=== PATIENT | female | born 1975 | race Two or more races ===

== ENCOUNTER 2022-12-08 07:11 | Emergency (ER) | payer OTHER, SELFPAY ==
--- NOTE | ~2022-12-08 | CT_ITS ---
EXAMINATION: CT ABDOMEN AND PELVIS WITH CONTRAST CLINICAL INFORMATION: Right-sided pain COMPARISON: Previous limited abdominal ultrasound from earlier the same day and CT of the abdomen and pelvis May 2019 TECHNIQUE: Multidetector volumetric images were obtained from the superior aspect of the liver through the pubic symphysis following administration 85 mL of Omnipaque 350 intravenous contrast. Sagittal and coronal reformatted images were obtained on the technologist's workstation. Oral contrast: Yes This CT examination was performed using dose optimization techniques as appropriate, variously including the following: *Automated exposure control *Adjustment of mA and/or kV according to patient size (this includes techniques or standardized protocols for targeted exams where dose is matched to indication/reason for exam; i.e. extremities or head) *Use of iterative reconstruction technique DLP: 679 mGy-cm FINDINGS: LUNG BASES: The visualized lung bases are unremarkable. LIVER, GALLBLADDER, AND BILIARY TREE: The liver is normal in size, shape, and attenuation. No focal hepatic lesion or biliary ductal dilatation is present. The gallbladder is unremarkable with no evidence of radiopaque gallstones, gallbladder wall thickening, or obvious pericholecystic inflammatory changes. PANCREAS: Unremarkable. SPLEEN: Unremarkable. ADRENAL GLANDS: Unremarkable. KIDNEYS AND URETERS: The kidneys are normal in size, shape, and attenuation. No hydronephrosis, hydroureter, or calculi seen. No perinephric stranding. BLADDER: Unremarkable. GASTROINTESTINAL TRACT: The small and large bowel are unremarkable. The appendix is unremarkable. ABDOMINAL WALL: Small umbilical and right inguinal hernia containing fat. LYMPH NODES: Normal. VASCULAR: Unremarkable. PELVIC VISCERA: The uterus has been removed. No pelvic mass. OSSEOUS STRUCTURES: Unremarkable. CT/CT abdomen pelvis w IV con IMPRESSION: No acute finding. Small umbilical and right inguinal hernias containing fat. Fleischner guidelines were followed.
--- NOTE | ~2022-12-08 | US_ITS ---
EXAMINATION: US ABDOMEN LIMITED CLINICAL INFORMATION: Right upper quadrant pain. COMPARISON: CT scan of May 14, 2019 TECHNIQUE: Real-time imaging of the right upper quadrant abdominal viscera. FINDINGS: PANCREAS: Obscured by overlying bowel gas. LIVER: There is increased echogenicity consistent with fatty infiltration. The liver is normal in size. The liver contour is normal. No focal hepatic lesion. There is no intrahepatic biliary duct dilatation seen. GALLBLADDER: Normal. The gallbladder is physiologically distended without evidence of stones, sludge, polyps, wall thickening or pericholecystic fluid. COMMON BILE DUCT: Normal in caliber measuring 0.3 cm in diameter. RIGHT KIDNEY: Normal. No hydronephrosis. No renal calculi or focal parenchymal lesions. The kidney measures 10.7 cm in maximum dimension. FREE FLUID: None. US/US abdomen limited IMPRESSION: Fatty infiltration of the liver. No evidence of acute cholecystitis.
[2022-12-08 07:14] VITALS: BP 125/75; PULSE 95; RESP 18; TEMP 36.6; O2SAT 99; BMI 33.5
[2022-12-08 07:36] VITALS: BP 124/80; PULSE 92; RESP 18; TEMP 36.6; O2SAT 97
--- NOTE | 2022-12-08 07:36 | ED_ITS ---
HPI - General Adult General Chief complaint: General Medical Stated complaint: R flank pain/Vomiting/Fever Time Seen by Provider: 12/08/22 07:24 Source: patient and old records reviewed History of Present Illness HPI narrative: Patient with 4 days of abdominal pain and vomiting. Patient states for the past few days she has also had intermittent fevers up to 102 degrees F. Pain is mostly right mid upper abdomen radiating to right flank. No lower abdominal or pelvic area pain. She denies dysuria, hesitancy, frequency, hematuria. No history of kidney stones or gallstones of which she is aware. Prior abdominal surgical history is significant for hysterectomy, tubal ligation, and ablation. No diarrhea. Last normal bowel movement yesterday. Minimal appetite. Unable to state if pain is better or worse with p.o. intake as she states she has not eaten in the last several days. Related Data Previous Rx's Medication Instructions Recorded promethazine 25 mg tablet 25 mg PO Q6H PRN nausea and 12/08/22 vomiting #20 tabs Allergies Allergy/AdvReac Type Severity Reaction Status Date / Time salazar [SALAZAR] Allergy Unknown UNK Verified 12/08/22 08:00 kiwi [KIWI] Allergy Unknown ANAPHYLAXIS Verified 12/08/22 08:00 shellfish derived Allergy Unknown ANAPHYLAXIS Verified 12/08/22 08:00 [SHELLFISH DERIVED] hydromorphone [HYDROMORPHONE] AdvReac Mild NAUSEA & Verified 12/08/22 08:00 VOMITING salazar Allergy Unknown Anaphylaxis Uncoded 12/08/22 08:00 kiwi Allergy Unknown Anaphylaxis Uncoded 12/08/22 08:00 possibly IV contrast Allergy Unknown 1 x Uncoded 09/14/17 00:00 swelling, itch SEAFOOD Allergy Unknown UNK Uncoded 03/27/20 19:00 seafood Allergy Unknown Anaphylaxis Uncoded 12/08/22 08:00 Review of Systems Constitutional: Comments: Fevers and general malaise Respiratory: Comments: No cough Gastrointestinal: Gastrointestinal: Reports as per HPI Genitourinary: Genitourinary: Reports no additional female genitourinary complaints Musculoskeletal: Comments: Pain to right flank Integumentary/Breasts: Comments: No rash PMFSH Social History Social History Advance Directives: No Advance Directives Information Provided: No Physical Exam ED Vital Signs: Vital Signs - 24 hr 12/08/22 07:14 12/08/22 07:36 12/08/22 09:12 Temperature 98 F 98 F 98 F Pulse Rate 95 92 79 Respiratory Rate 18 18 18 Blood Pressure 125/75 124/80 106/60 Pulse Oximetry 99 97 98 Oxygen Delivery Method Room Air Room Air Room Air 12/08/22 10:21 12/08/22 12:29 Temperature 98.7 F 98.7 F Pulse Rate 89 89 Respiratory Rate 18 18 Blood Pressure 128/64 122/80 Pulse Oximetry 100 98 Oxygen Delivery Method Room Air Room Air BMI result Body Mass Index 33.5 Const Other: Awake and alert. Appears uncomfortable. HENMT Other: Mucosa dry. Mucosa pale. Resp Other: Clear and equal bilaterally without wheezes rales or rhonchi Cardio Other: Regular rate and rhythm without murmurs rubs or gallops GI Other: Soft. Tender right upper quadrant with positive Reardon sign. Right flank tenderness to percussion as well. No significant lower abdominal tenderness. Skin Other: Pale and dry without rash Neuro Other: Grossly nonfocal neuro exam Medications Administered Discontinued Medications Generic Name Dose Route Start Last Admin Trade Name Freq PRN Reason Stop Dose Admin Diphenhydramine HCl 50 mg 12/08/22 09:53 12/08/22 10:08 Diphenhydramine Hcl 50 Mg/Ml Vial IVPUSH 12/08/22 09:54 50 mg ONCE ONE Administration Fentanyl 50 mcg 12/08/22 09:19 12/08/22 09:23 Fentanyl Citrate/Pf 100 Mcg/2 Ml Vial IVPUSH 12/08/22 09:20 50 mcg ONCE ONE Administration Protocol Fentanyl 50 mcg 12/08/22 12:47 12/08/22 12:53 Fentanyl Citrate/Pf 100 Mcg/2 Ml Vial IVPUSH 12/08/22 12:48 50 mcg ONCE ONE Administration Protocol Sodium Chloride 1,000 mls @ 999 mls/hr 12/08/22 07:45 12/08/22 12:44 Ns IV 12/08/22 08:45 Infused .Q1H1M SALOMÓN Infusion Iohexol 100 ml 12/08/22 09:51 12/08/22 09:51 Iohexol 350 Mg/Ml 100 Ml Infus..Btl IV 12/08/22 09:52 85 ml ONCE ONE Administration Ketorolac Tromethamine 30 mg 12/08/22 07:35 12/08/22 07:54 Ketorolac Tromethamine 15 Mg/Ml Vial IVPUSH 12/08/22 07:36 30 mg ONCE ONE Administration Methylprednisolone Sodium Succinate 125 mg 12/08/22 09:53 12/08/22 10:08 Methylprednisolone Sod Succ 125 Mg/2 Ml Vial IVPUSH 12/08/22 09:54 125 mg ONCE ONE Administration Ondansetron HCl 4 mg 12/08/22 07:35 12/08/22 07:54 Ondansetron Hcl 4 Mg/2 Ml Vial IVPUSH 12/08/22 07:36 4 mg ONCE ONE Administration Medical Decision Making Medical Decision Making MDM Narrative: Patient with 4 days of right upper quadrant radiating to flank pain with fevers. Cholecystitis, pyelonephritis, kidney stone, viral or bacterial enteritis, pancreatitis. Clinically appears dehydrated as well. Will treat with IV fluids, IV Toradol, IV Zofran. Lab work including LFTs and lipase. Ultrasound for gallbladder imaging. If nondiagnostic will order CT scan 09:56. After CT scan patient states she is feeling somewhat itchy.. She states this has happened in the past with CT scan dye. Although she does not have it listed as a formal allergy. She states that given her medicine after an IV contrast in the past. Will order diphenhydramine and Solu-Medrol 13:47. CT scan shows no obvious abnormalities to explain the pain. Lab work shows normal CBC and normal chemistries. LFTs are normal as is lipase. Urinalysis is normal. Patient is feeling better after treatment. Lab Data 12/08/22 07:35 12/08/22 07:35 Labs: Lab Results 12/08/22 12/08/22 12/08/22 Range/Units 07:35 07:35 07:35 WBC 9.6 (4.8-10.8) X10*3/uL RBC 4.48 (4.20-5.50) X10*6/uL Hgb 12.5 (12.0-16.0) g/dl Hct 38.5 (37.0-47.0) % MCV 85.9 (80.0-98.0) fL MCH 27.9 (27.0-33.0) pg MCHC 32.5 (31.0-35.0) g/dl RDW 13.7 (11.0-16.0) % Plt Count 355 (160-400) X10*3/uL MPV 8.8 L (9.4-12.3) fL Absolute Nucleated RBC 0.000 (0.0-0.012) X10*3/uL Nucleated RBC % (auto) 0.0 (0.0-0.2) /100WBC Sodium 140 (135-145) mmol/L Potassium 4.8 (3.3-5.1) mmol/L Chloride 110 H (96-108) mmol/L Carbon Dioxide 25 (22-29) mmol/L Anion Gap 10 L (12-20) BUN 16 (9-16) mg/dL Creatinine 0.83 (0.5-1.4) mg/dL Estim Creat Clear Calc 91.1 Estimated GFR > 60 POC Glucose (60-115) mg/dL Random Glucose 170 H (60-115) mg/dL Calcium 9.2 (8.4-10.2) mg/dL Total Bilirubin 0.2 (0.0-1.0) mg/dL Direct Bilirubin < 0.2 (0.0-0.5) mg/dL AST 10 (5-31) U/L ALT 16 (0-31) U/L Alkaline Phosphatase 82 (39-117) U/L Total Protein 7.0 (6.5-8.0) g/dL Albumin 3.8 (3.5-5.0) g/dL Lipase 23 (8-78) U/L Urine Color Yellow Urine Appearance Clear Urine pH 7.0 (5.0-9.0) Ur Specific [place] >= 1.030 H (1.005-1.025) Urine Protein Negative (Neg-Trace) mg/dL Urine Glucose (UA) >=1000 H (Negative) mg/dL Urine Ketones Negative (Negative) mg/dL Urine Blood Negative (Negative) Urine Nitrite Negative (Negative) Ur Leukocyte Esterase Negative (Negative) Urine RBC 0-2 (0-2) /HPF Urine WBC 0-5 (0-5) /HPF Ur Squamous Epith Cells 0-2 (0-2) /HPF Urine Bacteria None Seen (None Seen) Hyaline Casts 0-2 (0-2) /LPF Urine Test (NEGATIVE) 12/08/22 12/08/22 Range/Units 07:35 10:25 WBC (4.8-10.8) X10*3/uL RBC (4.20-5.50) X10*6/uL Hgb (12.0-16.0) g/dl Hct (37.0-47.0) % MCV (80.0-98.0) fL MCH (27.0-33.0) pg MCHC (31.0-35.0) g/dl RDW (11.0-16.0) % Plt Count (160-400) X10*3/uL MPV (9.4-12.3) fL Absolute Nucleated RBC (0.0-0.012) X10*3/uL Nucleated RBC % (auto) (0.0-0.2) /100WBC Sodium (135-145) mmol/L Potassium (3.3-5.1) mmol/L Chloride (96-108) mmol/L Carbon Dioxide (22-29) mmol/L Anion Gap (12-20) BUN (9-16) mg/dL Creatinine (0.5-1.4) mg/dL Estim Creat Clear Calc Estimated GFR POC Glucose 99 (60-115) mg/dL Random Glucose (60-115) mg/dL Calcium (8.4-10.2) mg/dL Total Bilirubin (0.0-1.0) mg/dL Direct Bilirubin (0.0-0.5) mg/dL AST (5-31) U/L ALT (0-31) U/L Alkaline Phosphatase (39-117) U/L Total Protein (6.5-8.0) g/dL Albumin (3.5-5.0) g/dL Lipase (8-78) U/L Urine Color Urine Appearance Urine pH (5.0-9.0) Ur Specific [place] (1.005-1.025) Urine Protein (Neg-Trace) mg/dL Urine Glucose (UA) (Negative) mg/dL Urine Ketones (Negative) mg/dL Urine Blood (Negative) Urine Nitrite (Negative) Ur Leukocyte Esterase (Negative) Urine RBC (0-2) /HPF Urine WBC (0-5) /HPF Ur Squamous Epith Cells (0-2) /HPF Urine Bacteria (None Seen) Hyaline Casts (0-2) /LPF Urine Test NEGATIVE (NEGATIVE) Discharge Plan Discharge Clinical Impression: Nausea and vomiting Patient Disposition: Home, Self-Care Instructions: Acute Nausea and Vomiting (ED), Acute Abdominal Pain (ED) Additional Instructions: Her workup in the emergency department showed normal lab work including liver function and pancreatic enzymes. Urinalysis was normal. CT scan showed no obvious abnormalities. Ultrasound showed no gallstones or evidence of gallbladder infection. Your treated with IV fluids, pain medication, and nausea medicine. Will discharge home on nausea medicine Prescriptions: New promethazine 25 mg tablet 25 mg PO Q6H PRN (Reason: nausea and vomiting) Qty: 20 0RF
[2022-12-08 07:48] LABS: UPreg QC Valid YES; Urine Pregnancy NEGATIVE (NEGATIVE)
[2022-12-08 07:49] LABS: Hematocrit 38.5 % (37.0-47.0); Hemoglobin 12.5 g/dl (12.0-16.0); Mean Corpuscular HGB Conc 32.5 g/dl (31.0-35.0); Mean Corpuscular Hemoglobin 27.9 pg (27.0-33.0); Mean Corpuscular Volume 85.9 fL (80.0-98.0); Mean Platelet Volume 8.8 fL (9.4-12.3); Platelet Count 355 X10*3/uL (160-400); Red Blood Count 4.48 X10*6/uL (4.20-5.50); Red Cell Distribution Width 13.7 % (11.0-16.0); White Blood Count 9.6 X10*3/uL (4.8-10.8)
[2022-12-08] MEDS: 0.9 % Sodium Chloride 1,000 ML 999 ML IV (07:54)
[2022-12-08] MEDS: Ketorolac Tromethamine 15 MG/ML VIAL 30 MG IVPUSH (07:54)
[2022-12-08] MEDS: ondansetron HCL 4 MG/2 ML VIAL IVPUSH (07:54)
[2022-12-08 07:59] LABS: Appearance Urine Clear; Color Urine Yellow; Glucose Urine UA >=1000 mg/dL (Negative); Leukocyte Esterase Urine Negative (Negative); Nitrite Urine Negative (Negative); Specific Gravity - Urine >= 1.030 (1.005-1.025); UMIC TRIGGER UACC YES; Urine Blood Negative (Negative); Urine Ketones Negative (Negative); Urine Protein Negative (Neg-Trace)
[2022-12-08 08:07] LABS: Alanine Aminotransferase 16 U/L (0-31); Albumin Level 3.8 g/dL (3.5-5.0); Alkaline Phosphatase 82 U/L (39-117); Anion Gap 10 (12-20); Aspartate Amino Transferase 10 U/L (5-31); Bacteria Urine None Seen (None Seen); Bilirubin Direct < 0.2 mg/dL (0.0-0.5); Bilirubin Total 0.2 mg/dL (0.0-1.0); Blood Urea Nitrogen 16 mg/dL (9-16); Calcium 9.2 mg/dL (8.4-10.2); Carbon Dioxide 25 mmol/L (22-29); Chloride 110 mmol/L (96-108); Creatinine Clr Calc Pharmacy 91.1; Estimated Glomerular Filt Rate > 60; Glucose Random 170 mg/dL (60-115); Hyaline Casts Urine 0-2 /LPF (0-2); Lipase 23 U/L (8-78); Potassium 4.8 mmol/L (3.3-5.1); RBC Urine 0-2 /HPF (0-2); Sodium 140 mmol/L (135-145); Squamous Epithelial Cell Urine 0-2 /HPF (0-2); WBC Urine 0-5 /HPF (0-5)
[2022-12-08 09:12] VITALS: BP 106/60; PULSE 79; RESP 18; TEMP 36.6; O2SAT 98
[2022-12-08] MEDS: fentaNYL citrate/PF 100 MCG/2 ML VIAL 50 MCG IVPUSH ×2 (09:23→12:53)
[2022-12-08] MEDS: iohexoL 350 MG/ML 100 ML INFUS..BTL IV (09:51)
[2022-12-08] MEDS: diphenhydrAMINE HCL 50 MG/ML VIAL IVPUSH (10:08)
[2022-12-08] MEDS: methylPREDNISolone Sod Succ 125 MG/2 ML VIAL IVPUSH (10:08)
--- NOTE | 2022-12-08 10:16 | PC.NURSE ---
patients pain has been hard to control, provider away
[2022-12-08 10:21] VITALS: BP 128/64; PULSE 89; RESP 18; TEMP 37.1; O2SAT 100
[2022-12-08 10:30] LABS: Glucose, Whole Blood 99 mg/dL (60-115)
[2022-12-08 12:29] VITALS: BP 122/80; PULSE 89; RESP 18; TEMP 37.1; O2SAT 98
[2022-12-08 14:13] VITALS: BP 115/64; PULSE 88; RESP 18; O2SAT 96
== END 2022-12-08 14:14 | disposition home or self-care (01) ==
PROVIDERS: Emergency Provider Emergency Medicine; PCP Nurse Practitioner Family
DX: R11.2 Nausea with vomiting, unspecified (principal); R50.9 Fever, unspecified; R10.9 Unspecified abdominal pain; R10.11 Right upper quadrant pain
CPT/HCPCS: 36415; 74177; 76705; 80048; 80076; 81001; 81003; 81025; 82947; 83690; 85027; 96361; 96374; 96375; 96376; 99284; 99285; J1200; J1885; J2405; J2930; J3010; Q9967

== ENCOUNTER 2022-12-10 22:46 | Emergency (ER) | payer OTHER, SELFPAY ==
--- NOTE | ~2022-12-10 | CT_ITS ---
EXAMINATION: CT ABDOMEN AND PELVIS WITHOUT CONTRAST CLINICAL INFORMATION: Right upper quadrant pain COMPARISON: 12/08/2022 TECHNIQUE: Multidetector volumetric imaging was performed from the superior aspect of the liver through the pubic symphysis. Sagittal and coronal reformatted images were obtained on the technologist's workstation. This CT examination was performed using dose optimization techniques as appropriate, variously including the following: *Automated exposure control *Adjustment of mA and/or kV according to patient size (this includes techniques or standardized protocols for targeted exams where dose is matched to indication/reason for exam; i.e. extremities or head) *Use of iterative reconstruction technique DLP: 709 mGy-cm FINDINGS: LUNG BASES: The visualized lung bases are unremarkable. LIVER, GALLBLADDER, AND BILIARY TREE: The liver is normal in size, shape, and attenuation. No focal hepatic lesion or biliary ductal dilatation is identified on this noncontrast exam. The gallbladder is unremarkable with no evidence of radiopaque gallstones, gallbladder wall thickening, or obvious pericholecystic inflammatory changes. PANCREAS: Unremarkable. SPLEEN: Unremarkable. ADRENAL GLANDS: Unremarkable. KIDNEYS AND URETERS: No hydronephrosis or obstructing calculus identified. Mild symmetric bilateral perinephric stranding. BLADDER: Unremarkable. GASTROINTESTINAL TRACT: No evidence of bowel obstruction or significant wall thickening. The appendix is unremarkable. No free fluid or free air is seen. ABDOMINAL WALL: Small fat-containing right inguinal hernia. LYMPH NODES: Normal. VASCULAR: Mild scattered atherosclerotic calcification along the aorta. PELVIC VISCERA: Patient is status post hysterectomy. OSSEOUS STRUCTURES: Unremarkable. CT/CT abdomen pelvis wo IV con IMPRESSION: No acute findings identified in the abdomen/pelvis.
[2022-12-10 23:32] VITALS: BP 139/79; PULSE 112; RESP 18; TEMP 36.6; O2SAT 99; BMI 33.5
[2022-12-10 23:54] LABS: Appearance Urine Clear; Color Urine Yellow; Glucose Urine UA >=1000 mg/dL (Negative); Leukocyte Esterase Urine Negative (Negative); Nitrite Urine Negative (Negative); Specific Gravity - Urine >= 1.030 (1.005-1.025); UMIC TRIGGER UACC YES; Urine Blood Negative (Negative); Urine Ketones Negative (Negative); Urine Protein Negative (Neg-Trace)
[2022-12-10 23:56] LABS: Bacteria Urine None Seen (None Seen); Hyaline Casts Urine 0-2 /LPF (0-2); RBC Urine 0-2 /HPF (0-2); Squamous Epithelial Cell Urine 0-2 /HPF (0-2); WBC Urine 0-5 /HPF (0-5)
[2022-12-11 00:07] LABS: Basophils Absolute Auto 0.1 X10*3/uL (0.0-0.2); Basophils Percent Auto 0.6 % (0-2); Eosinophils Absolute Auto 0.3 X10*3/uL (0.0-0.4); Eosinophils Percent Auto 1.8 % (0-4); Hematocrit 39.7 % (37.0-47.0); Imm Gran Abs Auto 0.05 X10*3/uL (0.00-0.03); Imm Gran Pct Auto 0.3 % (0.0-0.4); Lymphocytes Percent Auto 44.1 % (20-40); MANUAL DIFF FLAG SCAN; Mean Corpuscular HGB Conc 32.7 g/dl (31.0-35.0); Mean Corpuscular Hemoglobin 27.8 pg (27.0-33.0); Mean Platelet Volume 8.5 fL (9.4-12.3); Monocytes Percent Auto 6.2 % (2-11); Neutrophils Absolute Auto 7.7 x10*3/uL (2.0-8.3); Platelet Count 403 X10*3/uL (160-400); Red Blood Count 4.67 X10*6/uL (4.20-5.50); Red Cell Distribution Width 13.9 % (11.0-16.0); SCAN SMEAR FLAG 1; White Blood Count 16.3 X10*3/uL (4.8-10.8)
[2022-12-11 00:08] LABS: Lymphocytes Absolute Auto 7.2 X10*3/uL (1.2-4.9)
[2022-12-11 00:09] LABS: Alanine Aminotransferase 17 U/L (0-31); Albumin Level 4.1 g/dL (3.5-5.0); Alkaline Phosphatase 83 U/L (39-117); Anion Gap 12 (12-20); Aspartate Amino Transferase 12 U/L (5-31); Bilirubin Total 0.2 mg/dL (0.0-1.0); Blood Urea Nitrogen 21 mg/dL (9-16); Calcium 9.6 mg/dL (8.4-10.2); Carbon Dioxide 26 mmol/L (22-29); Chloride 108 mmol/L (96-108); Creatinine Clr Calc Pharmacy 102.3; Estimated Glomerular Filt Rate > 60; Glucose Random 67 mg/dL (60-115); Potassium 3.7 mmol/L (3.3-5.1); Sodium 142 mmol/L (135-145); Total Protein 7.4 g/dL (6.5-8.0)
[2022-12-11 00:10] LABS: SLIDE REVIEW VERIFIED
[2022-12-11] MEDS: Ketorolac Tromethamine 30 MG/ML VIAL IVPUSH (01:09)
[2022-12-11] MEDS: Metoclopramide HCl 10 MG/2 ML VIAL IVPUSH (01:09)
[2022-12-11] MEDS: 0.9 % Sodium Chloride 1,000 ML 999 ML IV (01:09)
--- NOTE | 2022-12-11 01:11 | ED.GENADULT ---
HPI - General Adult General Chief complaint: Abdominal Pain Stated complaint: back pain, r flank pain. seen recently. Time Seen by Provider: 12/11/22 00:49 Source: patient, RN notes reviewed and old records reviewed Mode of arrival: ambulatory Limitations: no limitations History of Present Illness HPI narrative: 47-year-old female with past medical history significant for diabetes presents for evaluation of abdominal pain and vomiting. Patient reports that her symptoms started 6 days ago She was seen here on 12/08/2022 She had a workup that included blood work, gallbladder ultrasound, CT scan of the abdomen pelvis all of which was unremarkable and the patient was ultimately discharged home with promethazine Since that time her symptoms have been worse She reports a history of a tubal ligation but no other abdominal surgeries Denies any fevers, chills Related Data Previous Rx's Medication Instructions Recorded omeprazole 20 mg capsule,delayed 20 mg PO DAILY #20 caps 12/08/22 release promethazine 25 mg tablet 25 mg PO Q6H PRN nausea and 12/08/22 vomiting #20 tabs dicyclomine 20 mg tablet 20 mg PO QID #30 tabs 12/11/22 omeprazole 20 mg capsule,delayed 20 mg PO DAILY #20 caps 12/11/22 release ondansetron 4 mg disintegrating 4 mg PO Q8H PRN nausea and 12/11/22 tablet vomiting #20 tabs Allergies Allergy/AdvReac Type Severity Reaction Status Date / Time salazar [SALAZAR] Allergy Unknown UNK Verified 12/08/22 08:00 kiwi [KIWI] Allergy Unknown ANAPHYLAXIS Verified 12/08/22 08:00 shellfish derived Allergy Unknown ANAPHYLAXIS Verified 12/08/22 08:00 [SHELLFISH DERIVED] hydromorphone [HYDROMORPHONE] AdvReac Mild NAUSEA & Verified 12/08/22 08:00 VOMITING salazar Allergy Unknown Anaphylaxis Uncoded 12/08/22 08:00 kiwi Allergy Unknown Anaphylaxis Uncoded 12/08/22 08:00 possibly IV contrast Allergy Unknown 1 x Uncoded 09/14/17 00:00 swelling, itch SEAFOOD Allergy Unknown UNK Uncoded 03/27/20 19:00 seafood Allergy Unknown Anaphylaxis Uncoded 12/08/22 08:00 Review of Systems Constitutional: Constitutional: Denies chills, Denies fever(s), Reports headache(s) and Reports malaise ENT: Reports headache(s) Cardiovascular: Cardiovascular: Denies chest pain and Denies dyspnea Respiratory: Respiratory: Denies cough and Denies dyspnea Gastrointestinal: Gastrointestinal: Reports abdominal pain, Reports diarrhea, Reports nausea and Reports vomiting Genitourinary: Genitourinary: Denies dysuria Musculoskeletal: Musculoskeletal: Denies back pain Integumentary/Breasts: Skin/Breast: Denies rash Neurologic: Reports headache(s) PMFSH Social History Social History Advance Directives: No Advance Directives Information Provided: Yes Physical Exam ED Vital Signs: Vital Signs - 24 hr 12/10/22 23:32 Temperature 97.8 F Pulse Rate 112 H Respiratory Rate 18 Blood Pressure 139/79 Pulse Oximetry 99 Oxygen Delivery Method Room Air BMI result Body Mass Index 33.5 Const General: healthy appearing, comfortable, no acute distress, alert and awake Nutritional Appearance: well nourished Orientation/consciousness: patient oriented x3 HENMT Head: Yes normocephalic and Yes atraumatic Eyes Eyelids: Yes eyelids normal Conjunctivae: conjunctivae normal Sclerae: sclerae normal Corneas: corneas normal Pupils: Equal, round and reactive pupils present EOM: EOMs intact bilaterally Neck Neck: Yes full ROM Resp Effort & Inspection: normal respiratory effort, able to speak in complete sentences and not labored Cardio Rate: regular rate Rhythm: regular rhythm GI Inspection: No distended Palpation (GI): Soft to palpation, not firm, Tenderness to palpation present (GI) in the epigastrum, in the LUQ and in the RUQ and Guarding due to palpation present (GI) in the LUQ and in the RUQ Auscultation: normoactive bowel sounds Skin General skin exam: no rashes or lesions noted and elasticity normal Neuro General: patient oriented x3 Cranial nerves: Yes Equal, round and reactive pupils present and Yes Bilaterally intact EOM present Cognition (Neuro): normal cognition Extrem Other: Moving all extremities well without any obvious deformities Medications Administered Discontinued Medications Generic Name Dose Route Start Last Admin Trade Name Freq PRN Reason Stop Dose Admin Sodium Chloride 1,000 mls @ 999 mls/hr 12/11/22 01:00 12/11/22 02:18 Ns IV 12/11/22 02:00 Infused .Q1H1M SALOMÓN Infusion Ketorolac Tromethamine 30 mg 12/11/22 00:59 06/03/23 01:09 Ketorolac Tromethamine 30 Mg/Ml Vial IVPUSH 12/11/22 01:00 30 mg ONCE ONE Administration Metoclopramide HCl 10 mg 12/11/22 00:59 12/11/22 01:09 Metoclopramide Hcl 10 Mg/2 Ml Vial IVPUSH 12/11/22 01:00 10 mg ONCE ONE Administration Medical Decision Making Medical Decision Making [facility] Narrative: 47-year-old female history of diabetes presents for evaluation abdominal pain. Her 2nd visit in 3 days. Her white count has increased from 9.6-16.3. This may be related to frequent vomiting. Her potassium did drop from 4.8-3.7. Again likely due to the vomiting. Her BUN is elevated 21. Will treat IV fluids. Will repeat CT scan given the patient's continued discomfort. We will hold IV contrast given the allergic reaction the last time. Her LFTs are within normal limits despite tenderness across the upper abdomen. If workup is negative again today, she will likely after follow-up with GI. Patient medicated with IV fluids, Zofran, Toradol. Differential Diagnosis Differential Diagnoses: The differential diagnosis associated with the presentation includes Viral syndrome IBS Peptic ulcer disease Gastroenteritis Cholelithiasis Acute cholecystitis Lab Data [facility] Lab Attestation statement: I reviewed the patient's lab results. 12/10/22 23:46 12/10/22 23:46 Labs: Lab Results 12/10/22 12/10/22 12/10/22 Range/Units 23:46 23:46 23:46 WBC 16.3 H (4.8-10.8) X10*3/uL RBC 4.67 (4.20-5.50) X10*6/uL Hgb 13.0 (12.0-16.0) g/dl Hct 39.7 (37.0-47.0) % MCV 85.0 (80.0-98.0) fL MCH 27.8 (27.0-33.0) pg MCHC 32.7 (31.0-35.0) g/dl RDW 13.9 (11.0-16.0) % Plt Count 403 H (160-400) X10*3/uL MPV 8.5 L (9.4-12.3) fL Immature Gran % (Auto) 0.3 (0.0-0.4) % Neut % (Auto) 47.0 (45-73) % Lymph % (Auto) 44.1 H (20-40) % [place] % (Auto) 6.2 (2-11) % Eos % (Auto) 1.8 (0-4) % Baso % (Auto) 0.6 (0-2) % Lymph # (Auto) 7.2 H (1.2-4.9) X10*3/uL [place] # (Auto) 1.0 (0.1-1.2) X10*3/uL Eos # (Auto) 0.3 (0.0-0.4) X10*3/uL Baso # (Auto) 0.1 (0.0-0.2) X10*3/uL Abs Immat Gran (auto) 0.05 H (0.00-0.03) X10*3/uL Absolute Neuts (auto) 7.7 (2.0-8.3) x10*3/uL Absolute Nucleated RBC 0.000 (0.0-0.012) X10*3/uL Nucleated RBC % (auto) 0.0 (0.0-0.2) /100WBC Smear Tech's Comments VERIFIED Sodium 142 (135-145) mmol/L Potassium 3.7 D (3.3-5.1) mmol/L Chloride 108 (96-108) mmol/L Carbon Dioxide 26 (22-29) mmol/L Anion Gap 12 (12-20) BUN 21 H (9-16) mg/dL Creatinine 0.74 (0.5-1.4) mg/dL Estim Creat Clear Calc 102.3 Estimated GFR > 60 Random Glucose 67 (60-115) mg/dL Calcium 9.6 (8.4-10.2) mg/dL Total Bilirubin 0.2 (0.0-1.0) mg/dL AST 12 (5-31) U/L ALT 17 (0-31) U/L Alkaline Phosphatase 83 (39-117) U/L Total Protein 7.4 (6.5-8.0) g/dL Albumin 4.1 (3.5-5.0) g/dL Urine Color Yellow Urine Appearance Clear Urine pH 8.0 (5.0-9.0) Ur Specific [place] >= 1.030 H (1.005-1.025) Urine Protein Negative (Neg-Trace) mg/dL Urine Glucose (UA) >=1000 H (Negative) mg/dL Urine Ketones Negative (Negative) mg/dL Urine Blood Negative (Negative) Urine Nitrite Negative (Negative) Ur Leukocyte Esterase Negative (Negative) Urine RBC 0-2 (0-2) /HPF Urine WBC 0-5 (0-5) /HPF Ur Squamous Epith Cells 0-2 (0-2) /HPF Urine Bacteria None Seen (None Seen) Hyaline Casts 0-2 (0-2) /LPF Independent Interpretation I performed an independent interpretation of an: CT Scan ( CT/CT abdomen pelvis wo IV con IMPRESSION: No acute findings identified in the abdomen/pelvis. Dictated By:Guille Daly MDSigned By:<Electronically signed by Guille Daly MD in [place]>12/11/22 0202) Attestation Attending Attestation: I reviewed AGENCY CASHIER/PA/Resident note, assessment and plan. I agree with the documentation, assessment and plan unless otherwise stated. I re-evaluate the patient following results. Reviewed all medical data. Patient does have an elevated white blood cell count which appears likely to be leukemoid reaction secondary distress, nausea vomiting. Abdominal exam reveals tenderness without rebound or guarding. She had a CT scan which demonstrates no acute obstruction, inflammatory process or other anatomical related issue. Patient was prescribed a PPI. I will additional prescribed the patient dicyclomine. Patient should follow-up with her primary care provider possibly a transplanter. This was discussed with the patient. All questions were addressed and answered. Discharge Plan Discharge Clinical Impression: Abdominal pain Patient Disposition: Home, Self-Care Instructions: Abdominal Pain (ED) Additional Instructions: Your CT scan again did not show any concerning abnormalities. You should start taking omeprazole daily again Use Zofran for nausea/vomiting Your referred to GI, Dr. Gay, as you may need an upper endoscopy to determine the cause of your symptoms Prescriptions: New omeprazole 20 mg capsule,delayed release(DR/EC) 20 mg PO DAILY Qty: 20 0RF ondansetron 4 mg tablet,disintegrating 4 mg PO Q8H PRN (Reason: nausea and vomiting) Qty: 20 0RF dicyclomine 20 mg tablet 20 mg PO QID Qty: 30 0RF No Action promethazine 25 mg tablet 25 mg PO Q6H PRN (Reason: nausea and vomiting) Qty: 20 0RF omeprazole 20 mg capsule,delayed release(DR/EC) 20 mg PO DAILY Qty: 20 0RF Referrals: Magdalena Gay MD [Physician] - (upper abdominal pain, negative imaging. ? endoscopy)
== END 2022-12-11 02:42 | disposition home or self-care (01) ==
PROVIDERS: Emergency Provider Emergency Medicine; PCP Nurse Practitioner Family
DX: M54.50 Low back pain, unspecified (principal); R10.9 Unspecified abdominal pain; Z79.899 Other long term (current) drug therapy
CPT/HCPCS: 36415; 74176; 80053; 81001; 85025; 96361; 96374; 96375; 99284; 99285; J1885; J2765

== ENCOUNTER → 2023-10-25 08:34 | Outpatient (BNVA) | payer OTHER, SELFPAY | PROVIDERS: PCP Nurse Practitioner Family; Visit Provider Surgery ==

== ENCOUNTER 2024-09-05 15:46 | Emergency (ER) | payer OTHER, SELFPAY ==
--- NOTE | ~2024-09-05 | CT_ITS ---
CLINICAL HISTORY: right flank pain CT abdomen and pelvis without contrast Comparison: CT/REG/SR - CT ABDOMEN PELVIS WO IV CON - 12/11/22 01:15 EDT Findings: The lung bases are clear. Diffuse fatty infiltration of the liver. Liver is borderline enlarged in size. The spleen is normal in size. Adrenal glands, pancreas, gallbladder, and kidneys are normal. There is no hydronephrosis. No ureteral stones. No bowel obstruction, pneumoperitoneum, or pneumatosis. Appendix is normal. Uterus is absent. Bilateral adnexa unremarkable. Fat containing right inguinal hernia. No lytic or blastic bone lesions. IMPRESSION: No acute findings. Hepatic steatosis. No evidence of renal or ureteral stones. No evidence of obstructive uropathy. This document has been electronically signed by: Gamal Villasenor MD on 09/05/2024 20:42:03
[2024-09-05 15:50] VITALS: BP 174/83; PULSE 102; RESP 16; TEMP 36.3; O2SAT 98; BMI 35.9
--- NOTE | 2024-09-05 15:50 | ED_ITS ---
HPI - General Adult General Chief complaint: Abdominal Pain Stated complaint: Abd pain, vaginal bleeding Time Seen by Provider: 09/05/24 19:10 Source: patient Limitations: no limitations History of Present Illness ED Provider: Eliza Bernard PA-C HPI narrative: 49-year-old female with a history of morbid obesity, GERD, status post hysterectomy presents with right flank pain x5 days. Pain over right mid back and flank radiating across entire abdomen. Associated nausea vomiting, dysuria and hematuria. Denies fever. Related Data Previous Rx's ?Medication ?Instructions ?Recorded omeprazole 20 mg capsule,delayed 20 mg PO DAILY #20 caps 12/08/22 release promethazine 25 mg tablet 25 mg PO Q6H PRN nausea and 12/08/22 vomiting #20 tabs dicyclomine 20 mg tablet 20 mg PO QID #30 tabs 12/11/22 omeprazole 20 mg capsule,delayed 20 mg PO DAILY #20 caps 12/11/22 release ondansetron 4 mg disintegrating 4 mg PO Q8H PRN nausea and 12/11/22 tablet vomiting #20 tabs cephalexin 500 mg capsule 500 mg PO BID #13 caps 09/05/24 ketorolac 10 mg tablet 10 mg PO Q6H PRN pain #20 tabs 09/05/24 ondansetron HCl 4 mg tablet 4 mg PO Q8H PRN nausea and 09/05/24 vomiting #10 tabs phenazopyridine 200 mg tablet 200 mg PO TID PRN pain #10 tabs 09/05/24 (Pyridium) Allergies Allergy/AdvReac Type Severity Reaction Status Date / Time merlos [MERLOS] Allergy Unknown UNK Verified 09/05/24 15:54 kiwi [KIWI] Allergy Unknown ANAPHYLAXIS Verified 09/05/24 15:54 shellfish derived Allergy Unknown ANAPHYLAXIS Verified 09/05/24 15:54 [SHELLFISH DERIVED] hydromorphone [HYDROMORPHONE] AdvReac Mild NAUSEA & Verified 09/05/24 15:54 VOMITING merlos Allergy Unknown Anaphylaxis Uncoded 09/05/24 15:54 kiwi Allergy Unknown Anaphylaxis Uncoded 09/05/24 15:54 possibly IV contrast Allergy Unknown 1 x Uncoded 09/05/24 15:54 swelling, itch SEAFOOD Allergy Unknown UNK Uncoded 09/05/24 15:54 seafood Allergy Unknown Anaphylaxis Uncoded 09/05/24 15:54 Review of Systems 2 Review of Systems: Yes all other systems are reviewed and are negative Constitutional: Constitutional: Denies fatigue and Denies fever(s) Cardiovascular: Cardiovascular: Denies chest pain and Denies dyspnea Respiratory: Respiratory: Denies dyspnea Gastrointestinal: Gastrointestinal: Reports abdominal pain, Reports nausea and Reports vomiting Genitourinary: Genitourinary: Reports hematuria, Reports dysuria and Reports flank pain Musculoskeletal: Musculoskeletal: Reports back pain Endocrine: Endocrine: Denies fatigue [facility] Past Medical History Attestation statement: The following information was validated with the patient. Social History Social History Alcohol intake: current Alcohol intake frequency: holidays/special occasions only Advance Directives: No Advance Directives Information Provided: Yes Physical Exam ED Vital Signs: Vital Signs - 24 hr 09/05/24 15:50 09/05/24 18:28 09/05/24 19:30 Temperature 97.3 F 98.2 F 98.7 F Pulse Rate 102 H 107 H 65 Respiratory Rate 16 18 14 Blood Pressure 174/83 H 159/91 H 141/84 H Pulse Oximetry 98 98 97 Oxygen Delivery Method Room Air Room Air Room Air BMI result Body Mass Index 35.9 Const Other: Alert, appears older than stated age Orientation/consciousness: patient oriented x3 Resp Effort & Inspection: normal respiratory effort Cardio Other: Normal peripheral perfusion GI Other: Abdomen is soft, nondistended, tenderness is generalized without objective guarding Back/Spine/Pelvis Other: Bilateral CVA tenderness Skin Other: Warm dry no rash Neuro General: patient oriented x3, gait normal, no focal motor deficits and CN's II- XI intact bilaterally Psych Other: Cooperative Course Course Course Narrative: RME, this is a rapid medical exam performed by Santos Gee please refer to primary provider for complete H&P- 49 year old female presents for evaluation of abdominal pain, nausea, and vomiting as well as headaches. She reports some mild vaginal bleeding but has had a hysterectomy. She reports that her pain radiates into her back and legs. Plan for labs and a UA. Medications Administered Discontinued Medications Generic Name Dose Route Start Last Admin Trade Name Freq PRN Reason Stop Dose Admin Cephalexin HCl 500 mg 09/05/24 19:50 09/05/24 20:32 Cephalexin 500 Mg Capsule PO 09/05/24 19:51 500 mg ONCE ONE Administration Sodium Chloride 500 mls @ 500 mls/hr 09/05/24 19:50 09/05/24 20:20 Ns IV 09/05/24 20:49 500 mls/hr .Q1H ONE Administration Ketorolac Tromethamine 15 mg 09/05/24 19:50 09/05/24 20:53 Ketorolac Tromethamine 15 Mg/Ml Vial IVPUSH 09/05/24 19:51 15 mg ONCE ONE Administration Morphine Sulfate 4 mg 09/05/24 19:50 09/05/24 20:54 Morphine Sulfate 4 Mg/Ml Cartridge IVPUSH 09/05/24 19:51 4 mg ONCE ONE Administration Protocol Ondansetron HCl 4 mg 09/05/24 19:50 09/05/24 20:53 Ondansetron Hcl 4 Mg/2 Ml Vial IVPUSH 09/05/24 19:51 4 mg ONCE ONE Administration Phenazopyridine HCl 200 mg 09/05/24 19:50 09/05/24 20:32 Phenazopyridine Hcl 200 Mg Tablet PO 09/05/24 19:51 200 mg ONCE ONE Administration Medical Decision Making Medical Decision Making MDM Narrative: 49-year-old female with a history of morbid obesity, GERD, status post hysterectomy presents with right flank pain x5 days. Pain over right mid back and flank radiating across entire abdomen. Associated nausea vomiting, dysuria and hematuria. Denies fever. No relative chronic issues History: Per patient I have considered the following differential diagnoses: Pyelonephritis, UTI, renal colic Plan: Given distribution of discomfort in nature of symptoms, I am considering pyelonephritis versus renal colic. Screening labs including a urinalysis were obtained from triage, she does have a UTI. We will be obtaining a CT scan, giving IV fluid, Toradol, morphine, Zofran and Pyridium, cephalexin. I have independently reviewed the following tests: Labs: No leukocytosis, not anemic, no electrolyte abnormality, urine is infected, CT abdomen and pelvis: Diffuse fatty infiltration of the liver. Liver is borderline enlarged in size. The spleen is normal in size. Adrenal glands, pancreas, gallbladder, and kidneys are normal. There is no hydronephrosis. No ureteral stones. No bowel obstruction, pneumoperitoneum, or pneumatosis. Appendix is normal. Uterus is absent. Bilateral adnexa unremarkable. Fat containing right inguinal hernia. No lytic or blastic bone lesions. IMPRESSION: No acute findings. Hepatic steatosis. No evidence of renal or ureteral stones. No evidence of obstructive uropathy. This document has been electronically signed by: Gamal Villasenor MD on 09/05/2024 20:42:03 Lab Data 09/05/24 16:08 09/05/24 16:05 Labs: Lab Results 09/05/24 09/05/24 09/05/24 Range/Units 16:05 16:08 16:09 WBC 10.9 H (4.8-10.8) X10*3/uL RBC 4.00 L (4.20-5.50) X10*6/uL Hgb 11.3 L (12.0-16.0) g/dl Hct 33.3 L (37.0-47.0) % MCV 83.3 (80.0-98.0) fL MCH 28.3 (27.0-33.0) pg MCHC 33.9 (31.0-35.0) g/dl RDW 14.1 (11.0-16.0) % Plt Count 386 (160-400) X10*3/uL MPV 8.8 L (9.4-12.3) fL Immature Gran % (Auto) 0.4 (0.0-0.4) % Neut % (Auto) 61.0 (45-73) % Lymph % (Auto) 29.6 (20-40) % [place] % (Auto) 6.8 (2-11) % Eos % (Auto) 1.8 (0-4) % Baso % (Auto) 0.4 (0-2) % Lymph # (Auto) 3.2 (1.2-4.9) X10*3/uL [place] # (Auto) 0.7 (0.1-1.2) X10*3/uL Eos # (Auto) 0.2 (0.0-0.4) X10*3/uL Baso # (Auto) 0.0 (0.0-0.2) X10*3/uL Abs Immat Gran (auto) 0.04 H (0.00-0.03) X10*3/uL Absolute Neuts (auto) 6.7 (2.0-8.3) x10*3/uL Absolute Nucleated RBC 0.000 (0.0-0.012) X10*3/uL Nucleated RBC % (auto) 0.0 (0.0-0.2) /100WBC Sodium 139 (135-145) mmol/L Potassium 3.9 (3.3-5.1) mmol/L Chloride 105 (96-108) mmol/L Carbon Dioxide 26 (22-29) mmol/L Anion Gap 12 (12-20) BUN 21 H (9-16) mg/dL Creatinine 0.96 (0.5-1.4) mg/dL Estim Creat Clear Calc 80.0 Estimated GFR > 60 Random Glucose 203 H (60-115) mg/dL Calcium 9.3 (8.4-10.2) mg/dL Total Bilirubin 0.2 (0.0-1.0) mg/dL AST 19 (5-31) U/L ALT 26 (0-31) U/L Alkaline Phosphatase 92 (39-117) U/L Total Protein 7.5 (6.5-8.0) g/dL Albumin 3.7 (3.5-5.0) g/dL Lipase 17 (8-78) U/L Urine Color Yellow Urine Appearance Cloudy Urine pH 6.0 (5.0-9.0) Ur Specific [place] 1.020 (1.005-1.025) Urine Protein 30 (1+) H (Neg-Trace) mg/dL Urine Glucose (UA) Negative (Negative) mg/dL Urine Ketones Trace (Negative) mg/dL Urine Blood Moderate (2+) H (Negative) Urine Nitrite Positive H (Negative) Ur Leukocyte Esterase Moderate (2+) H (Negative) Urine RBC >20 H (0-2) /HPF Urine WBC >50 H (0-5) /HPF Ur Squamous Epith Cells 3-5 (0-2) /HPF Urine Bacteria 4+ (None Seen) Hyaline Casts 6-10 (0-2) /LPF Discharge Plan Discharge Clinical Impression: Urinary tract infection Patient Disposition: Home, Self-Care Instructions: Urinary Tract Infection in Women (ED) Additional Instructions: You were found to have a urinary tract infection, the rest of your labs were normal. The CT scan was unremarkable, you were not passing a kidney stone. See home care instructions. Take the cephalexin as directed this is an antibiotic. Use the Pyridium as needed for bladder pain, to note, this medication will cause your urine to become fluorescent orange, it will resolve. Use the ketorolac as needed for further pain. Use the Zofran as needed for nausea. Follow up with your primary care provider as needed. Prescriptions: New ondansetron HCl 4 mg tablet 4 mg PO Q8H PRN (Reason: nausea and vomiting) Qty: 10 0RF ketorolac 10 mg tablet 10 mg PO Q6H PRN (Reason: pain) Qty: 20 0RF Rx Instructions: maximum total duration of 5 days from all oral, intranasal, or parenteral formulations. The patient had an IV form of Toradol here in the emergency department. phenazopyridine [Pyridium] 200 mg tablet 200 mg PO TID PRN (Reason: pain) Qty: 10 0RF cephalexin 500 mg capsule 500 mg PO BID Qty: 13 0RF No Action omeprazole 20 mg capsule,delayed release(DR/EC) 20 mg PO DAILY Qty: 20 0RF ondansetron 4 mg tablet,disintegrating 4 mg PO Q8H PRN (Reason: nausea and vomiting) Qty: 20 0RF dicyclomine 20 mg tablet 20 mg PO QID Qty: 30 0RF promethazine 25 mg tablet 25 mg PO Q6H PRN (Reason: nausea and vomiting) Qty: 20 0RF omeprazole 20 mg capsule,delayed release(DR/EC) 20 mg PO DAILY Qty: 20 0RF Print Language: Kiswahili
[2024-09-05 16:25] LABS: MANUAL DIFF FLAG NO
[2024-09-05 16:27] LABS: Basophils Percent Auto 0.4 % (0-2); Eosinophils Absolute Auto 0.2 X10*3/uL (0.0-0.4); Eosinophils Percent Auto 1.8 % (0-4); Hematocrit 33.3 % (37.0-47.0); Hemoglobin 11.3 g/dl (12.0-16.0); Imm Gran Abs Auto 0.04 X10*3/uL (0.00-0.03); Imm Gran Pct Auto 0.4 % (0.0-0.4); Lymphocytes Absolute Auto 3.2 X10*3/uL (1.2-4.9); Lymphocytes Percent Auto 29.6 % (20-40); Mean Corpuscular HGB Conc 33.9 g/dl (31.0-35.0); Mean Corpuscular Hemoglobin 28.3 pg (27.0-33.0); Mean Corpuscular Volume 83.3 fL (80.0-98.0); Mean Platelet Volume 8.8 fL (9.4-12.3); Monocytes Absolute Auto 0.7 X10*3/uL (0.1-1.2); Monocytes Percent Auto 6.8 % (2-11); Neutrophils Absolute Auto 6.7 x10*3/uL (2.0-8.3); Platelet Count 386 X10*3/uL (160-400); Red Cell Distribution Width 14.1 % (11.0-16.0); White Blood Count 10.9 X10*3/uL (4.8-10.8)
[2024-09-05 16:32] LABS: Appearance Urine Cloudy; Color Urine Yellow; Glucose Urine UA Negative (Negative); Leukocyte Esterase Urine Moderate (2+) (Negative); Nitrite Urine Positive (Negative); UMIC TRIGGER UACC YES; Urine Blood Moderate (2+) (Negative); Urine Ketones Trace mg/dL (Negative); Urine Protein 30 (1+) mg/dL (Neg-Trace)
[2024-09-05 16:44] LABS: Alanine Aminotransferase 26 U/L (0-31); Albumin Level 3.7 g/dL (3.5-5.0); Alkaline Phosphatase 92 U/L (39-117); Anion Gap 12 (12-20); Aspartate Amino Transferase 19 U/L (5-31); Bilirubin Total 0.2 mg/dL (0.0-1.0); Blood Urea Nitrogen 21 mg/dL (9-16); Calcium 9.3 mg/dL (8.4-10.2); Carbon Dioxide 26 mmol/L (22-29); Chloride 105 mmol/L (96-108); Estimated Glomerular Filt Rate > 60; Glucose Random 203 mg/dL (60-115); Lipase 17 U/L (8-78); Potassium 3.9 mmol/L (3.3-5.1); Sodium 139 mmol/L (135-145); Total Protein 7.5 g/dL (6.5-8.0)
[2024-09-05 16:46] LABS: Bacteria Urine 4+ (None Seen); RBC Urine >20 /HPF (0-2); UACC Culture Trigger YES; WBC Urine >50 /HPF (0-5)
[2024-09-05 18:28] VITALS: BP 159/91; PULSE 107; RESP 18; TEMP 36.8; O2SAT 98
[2024-09-05 19:30] VITALS: BP 141/84; PULSE 65; RESP 14; TEMP 37.1; O2SAT 97
--- OUTSIDE RECORDS SUMMARY | 2024-09-05 20:06 | XMS_ITS | Continuity of Care Document ---
Author Organization [facility] Address [address] [place] [address]- Care Team Providers Care Application Development Liaison Name Role Phone Camilla Camara NP Primary Care Physician [phone] [facility]counter [facility] Date[facility]s): 08/[facility]/24 - 09/02/24 [facility] [address] [place] [phone] Encounter Type: Triage Allergies, Adverse Reactions, Alerts Substance Criticality Severity Reaction Reaction Severity Status shellfish throat swells Active Contrast Dye 1 hives Activ e Other Food Allergy kiwi - throat swells Active Imitrex 2 Active [place] throat swells Active 1In [facility] 09/04/20, resolved with Benadryl 2chest pain Immunizations Given and Recorded Vaccine Date Status Refusal Reason tetanus/diphtheria/pertussis, acel(Tdap) 06/11/24 Recorded tetanus/diphtheria/pertussis, acel(Tdap) 06/28/23 Given SARS-CoV-2(COVID-19)mRNA-LNP vac([id number]) 06/11/24 Recorded SARS-CoV-2(COVID-19)mRNA-LNP vac([id number]) 07/15/23 Recorded pneumococcal 20-valent conjugate vaccine 1 05/17/24 Given influenza virus vaccine, inactivated 05/17/24 Give n influenza virus vaccine, inactivated 06/28/23 Give n influenza virus vaccine, inactivated 05/04/22 Give n influenza virus vaccine, inactivated 04/09/21 [place] rded influenza virus vaccine, inactivated 04/18/20 Give n influenza virus vaccine, inactivated 03/28/19 Give n influenza virus vaccine, inactivated 04/25/18 Give n influenza virus vaccine, inactivated 2 04/14/17 Gi samm influenza virus vaccine, inactivated 04/22/16 Give n influenza virus vaccine, inactivated 06/10/15 Give n influenza virus vaccine, inactivated 05/04/14 Give n influenza virus vaccine, inactivated 04/17/13 Give n influenza virus vaccine, inactivated 3 03/24/12 Gi samm influenza virus vaccine, inactivated 4 04/06/11 Gi samm influenza virus vaccine, inactivated 5 04/13/10 Gi samm influenza virus vaccine, inactivated 6 04/26/06 Gi samm hepatitis B adult vaccine 7 04/17/24 Given [id number] 12y+ bivalent booster vax 05/04/22 Given SARS-CoV-2 mRNA (ufwnhuc-mdat-gynmc) vax 02/26/22 Recorded SARS-CoV-2 (COVID-19) mRNA BNT-162b2 vac 04/09/21 Recorded SARS-CoV-2 (COVID-19) mRNA BNT-162b2 vac 09/09/20 Recorded SARS-CoV-2 (COVID-19) mRNA BNT-162b2 vac 08/19/20 Recorded Measles/Mumps/Rubella Virus Vaccine 8 08/27/10 Giv en influ virus vac, H1N1, inactive(oldterm) 07/19/09 Given pneumococcal 23-valent vaccine 07/19/09 Given Influenza Vaccine (oldterm) 9 03/21/09 Given Tet/Diphth/Acel, Pertussis (oldterm) 10 04/29/08 G iven Influenza Virus Vaccine (oldterm) 11 03/22/08 Give n 1Result Comment: mfd: [employer] 2Result Comment: [04/14/2017] [facility]#[id number] 3Admin Note: VIS GIVEN VIS DATE 01/10/2012 4Admin Note: vis given 02/02/11 5Admin Note: VIS GIVEN 02/17/10 samoan 6Admin Note: VIS GIVEN 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 Refills 11, Maintenance, use prior to injecting insulin or applying Cequr patch MDD 4 pads/day, 08/27/24 5:17:00 PM EST, Supply, 163, cm, 08/21/24 8:19:00 EST, Height, 92.2, kg, 07/19/24 21:11:00 EST, Dry Weight Start Date: 08/27/24 Status: Ordered Quantity: 200.0 Unit: each Repeat number: 12 amLODIPine 5 mg oral tablet 1 tablet, By Mouth, Daily, # 90 tablet, 3 Refills, Maintenance, 08/09/24 11:01:00 AM EST, Travel Notes STORE #[id number], 163, cm, 07/26/24 8:34:00 EST, Height, 92.2, kg, 07/19/24 21:11:00 EST, Dry Weight Start Date: 08/09/24 Status: Ordered Quantity: 90.0 Unit: tablet Repeat number: 4 Baqsimi Two Pack 3 mg nasal powder See Instructions, 3 mg Once In one nostril; dose does not need to be inhaled may repeat in 15 minutes, # 2 each, 5 Refills, Maintenance, 04/16/24 9:06:00 AM EDT, [facility] #[id number], Partial fill upon patient request if the prescription is for a schedule II opioid drug., 168, cm, 04/16/24 8:41:00 EDT, Height, 84.5, kg, 04/06/24 21:03:00 EDT, Dry Weight Start Date: 04/16/24 Status: Ordered Quantity: 2.0 Unit: each Repeat number: 6 buPROPion 150 mg/24 hours (XL) oral tablet, extended release 1 tablet, By Mouth, Every 24 hours, TAKE WITH VENLAFAXINE., # 90 tablet, 1 Refills, Maintenance, 07/25/24 1:42:00 PM EST, Travel Notes STORE #[id number], 90, TAKE 1 TABLET BY MOUTH EVERY 24 HOURS TO TAKEWITH VENLAFAXINE, 163, cm, 07/24/24 9:09:00 EST, Height, 92.2, kg, 07/19/24 21:11:00 EST, Dry Weight Start Date: 07/25/24 Status: Ordered Quantity: 90.0 Unit: tablet Repeat number: 1 Cequr Simplicity 2U 4-day (ND: [address]-16) Cequr Simplicity 2U 4-day (NDC: [address]-71), See Instructions, # 2 each, Refills 11, Tot. Refills 11, Maintenance, apply patch as directed and change every 2-3 days. Use with Humalog sliding scale, MDD 94 units/day, 08/20/24 6:47:00 PM EST, Please dispense 2 boxes. Each box contains 8 patches. This is a 30 day supply., Supply, 163, cm, 08/16/24 11:45:00 EST, Height, 92.2, kg, 07/19/24 21:11:00 EST, Dry Weight Start Date: 08/20/24 Status: Ordered Quantity: 2.0 Unit: each Repeat number: 12 Cequr Simplicity [employer] ([facility] [address]-95) Cequr Simplicity [employer] ([facility] [id number]), See Instructions, # 1 each, Refills 0, Tot. Refills 0, Maintenance, Use as directed to place Cequar simplicity patch, 08/09/24 2:30:00 PM EST, [facility] [id number]; Please dispense 1 insterter, Supply, 163, cm, 07/26/24 8:34:00 EST, Height, 92.2, kg, 07/19/24 21:11:00 EST, Dry Weight Start Date: 08/09/24 Status: Ordered Quantity: 1.0 Unit: each Repeat number: 1 desonide 0.05% topical cream Dr Jose Malagon - dermatology, 0 Refills, Maintenance, 07/24/24 10:29:00 AM EST Start Date: 07/24/24 Status: Ordered Repeat number: 1 Estrace Vaginal Cream 0.1 mg/g = 0.1 mg, Vaginally, Daily, use with enclosed calibrated applicator as directed. wash applicator with mild soap/warm water after use., use weekly for 2 weeks then 3 x a week for 2 weeks then weekly, # 42.5 Gm, 2 Refills, Maintenance, 08/21/24 8:40:00 AM EST, Travel Notes STORE #[id number], Partial fillupon patient request if the prescription is for a schedule II opioid drug., 163, cm, 08/21/24 8:19:00 EST, Height, 92.2, kg, 07/19/24 21:11:00 EST, Dry Weight Start Date: 08/21/24 Status: Ordered Quantity: 42.5 Unit: g Repeat number: 3 fluocinolone 0.01% topical oil Dr Jose Malagon - dermatology, 0 Refills, Maintenance, 07/24/24 10:29:00 AM EST Start Date: 07/24/24 Status: Ordered Repeat number: 1 Freestyle Madelyn 3 PLUS Sensor Freestyle Madelyn 3 PLUS Sensor, See Instructions, # 2 each, Refills 5, Tot. Refills 5, Maintenance, use to conttinuously monitor blood sugar and change sensor every 15 days E11.9, 03/19/24 9:13:00 AM EDT, Freestyle Madelyn 3 PLUS sensors; Replacing Madelyn 3 sensors while on backorder, Supply, 160, cm, 03/19/24 8:42:00 EDT, Height, 88.7, kg, 03/12/24 3:12:00 EDT, Dry Weight Start Date: 03/19/24 Status: Ordered Quantity: 2.0 Unit: each Repeat number: 6 HumaLOG 100 units/mL injectable solution See Instructions, inject via Cequr Simplicity patch using sliding scale MDD 94 units, # 30 mL, 11 Refills, Maintenance, 08/20/24 6:49:00 PM EST, Travel Notes STORE #[id number], replacing Humalog Kwikpens, 163, cm, 08/16/24 11:45:00 EST, Height, 92.2, kg, 07/19/24 21:11:00 EST, Dry Weight Start Date: 08/20/24 Status: Ordered Quantity: 30.0 Unit: mL Repeat number: 12 hydrOXYzine hydrochloride 25 mg oral tablet 1 tablet = 25 mg, By Mouth, 4 times a day, PRN for itching, # 40 tablet, 0 Refills, Acute 06/11/25 11:38:00 AM EST, 06/11/24 11:38:00 AM EST, Tablet, Travel Notes STORE #[id number], Partial fill upon patient request if the prescription is for a schedule II opioid drug., 168, cm, 06/11/24 11:03:00 EST, Height, 84.5, kg, 04/06/24 21:03:00 EDT, Dry Weight Start Date: 06/11/24 Stop Date: 06/11/25 Status: Ordered Quantity: 40.0 Unit: tablet Repeat number: 1 hydrOXYzine hydrochloride 25 mg oral tablet 1 tablet = 25 mg, By Mouth, 3 times a day, prn anxiety, sleep, may cause drowsiness, # 45 tablet, 1Refills, Maintenance, 12/28/23 1:40:00 PM EDT, Travel Notes STORE #[id number], Partial fill upon patient request if the prescription is for a schedule II opioid drug., 155, cm, 12/28/23 13:14:00 EDT, Height, 85, kg, 10/05/23 9:03:00 EDT, Dry Weight Start Date: 12/28/23 Status: Ordered Quantity: 45.0 Unit: tablet Repeat number: 2 hyoscyamine 0.125 mg oral tablet 0.125 mg, 1, tablet, By Mouth, 4 times a day, PRN, # 40 tablet, Refills 6, Tot. Refills 6, Maintenance, for spasm, 04/12/24 9:05:00 AM EDT, Route to Pharmacy Electronically, Travel Notes STORE #[id number], Partial fill upon patient request if the prescription is for a schedule II opioid drug., 168, cm,04/12/24 8:37:00 EDT, Height, 84.5, kg, 04/06/24 21:03:00 EDT, Dry Weight Start Date: 04/12/24 Status: Ordered Quantity: 40.0 Unit: tablet Repeat number: 7 Indication: Constipation, unspecified ipratropium nasal 42 mcg/inh spray 2 sprays = 84 mcg, Nares, Both, 4 times a day, # 15 mL, 0 Refills, Acute 09/21/24 5:11:00 PM EDT, 07/17/24 5:11:00 PM EST, [place], Travel Notes STORE #[id number], Partial fill upon patient request if the prescription is for a schedule II opioid drug., 2 sprays Nares, Both 4 times a day, 168, cm, 06/19/24 8:34:00 EST, Height, 84.5, kg, 04/06/24 21:03:00 EDT, Dry Weight Start Date: 07/17/24 Stop Date: 09/21/24 Status: Ordered Quantity: 15.0 Unit: mL Repeat number: 1 Indication: Acute upper respiratory infection, unspecified ketoconazole 2% topical shampoo Dr Jose Malagon - dermatology, 0 Refills, Maintenance, 07/24/24 10:29:00 AM EST Start Date: 07/24/24 Status: Ordered Repeat number: 1 Ketostix See Instructions, # 1 pack/packet, Refills 11, Tot. Refills 11, Maintenance, Use twice daily if glucose is over 400 or is consistently over 200., 07/25/24 5:22:00 PM EST, Supply, 163, cm, 07/24/24 9:09:00 EST, Height, 92.2, kg, 07/19/24 21:11:00 EST, Dry Weight Start Date: 07/25/24 Stop Date: 07/10/27 Status: Ordered Quantity: 1.0 Unit: pack/packet Repeat number: 12 Lantus Solostar Pen 100 units/mL subcutaneous solution = 62 units, By Mouth, Daily at bedtime, # 30 mL, 11 Refills, Maintenance, 07/27/24 6:22:00 PM EST, [facility] #[id number], increased dose, 163, cm, 07/26/24 8:34:00 EST, Height, 92.2, kg, 07/19/24 21:11:00 EST, Dry Weight Start Date: 07/27/24 Status: Ordered Quantity: 30.0 Unit: mL Repeat number: 12 Linzess 72 mcg oral capsule 1 capsule = 72 mcg, By Mouth, Daily, do not crush or chew, # 30 capsule, 0 Refills, Maintenance, 04/12/24 8:53:00 AM EDT, Capsule, [facility] #[id number], Partial fill upon patient request if theprescription is for a schedule II opioid drug., 168, cm, 04/12/24 8:37:00 EDT, Height, 84.5, kg, 04/06/24 21:03:00 EDT, Dry Weight Start Date: 04/12/24 Status: Ordered Quantity: 30.0 Unit: capsule Repeat number: 1 Indication: Constipation, unspecified losartan 50 mg oral tablet 50 mg, 1, tablet, By Mouth, Daily, STOP Lisinopril, # 90 tablet, Refills 2, Tot. Refills 2, Maintenance, 04/17/24 9:29:00 AM EDT, Route to Pharmacy Electronically, Travel Notes STORE #[id number], Partialfill upon patient request if the prescription is for a schedule II opioid drug., 168, cm, 04/17/24 9:08:00 EDT, Height, 84.5, kg, 04/06/24 21:03:00 EDT, Dry Weight Start Date: 04/17/24 Status: Ordered Quantity: 90.0 Unit: tablet Repeat number: 3 lovastatin 40 mg oral tablet 1 tablet, By Mouth, Daily in PM, FOR CHOLESTEROL., # 90 tablet, 1 Refills, Maintenance, 03/01/24 9:55:00 AM EDT, [facility] #[id number], 163, cm, 03/01/24 9:14:00 EDT, Height, 82, kg, 02/12/24 20:07:00 EDT, Dry Weight Start Date: 03/01/24 Status: Ordered Quantity: 90.0 Unit: tablet Repeat number: 2 metFORMIN 500 mg oral tablet, extended release 2 tablet = 1,000 mg, By Mouth, 2 times a day, with food, # 360 tablet, 4 Refills, Maintenance, 05/15/24 9:09:00 AM EST, ER Tablet, [facility] #[id number], dose increase, replacing previous metformin prescription, 168, cm, 05/15/24 8:39:00 EST, Height, 84.5, kg, 04/06/24 21:03:00 EDT, Dry Weight Start Date: 05/15/24 Status: Ordered Quantity: 360.0 Unit: tablet Repeat number: 5 metoclopramide 10 mg oral tablet See Instructions, TAKE 1 TABLET BY MOUTH FOUR TIMES DAILY 30 MINUTES BEFORE MEALS AND AT BEDTIME, #120 tablet, 0 Refills, Maintenance, 04/10/24 9:19:00 AM EDT, Travel Notes STORE #[id number], 168, cm, 04/06/24 21:03:00 EDT, Height, 84.5, kg, 04/06/24 21:03:00 EDT, Dry Weight Start Date: 04/10/24 Status: Ordered Quantity: 120.0 Unit: tablet Repeat number: 1 MiraLax oral powder for reconstitution = 17 Gm, By Mouth, Daily, PRN Constipation, dissolve in water, # 255 Gm, 1 Refills, Maintenance, 03/23/24 1:27:00 PM EDT, Travel Notes STORE #[id number], Partial fill upon patient request if the prescription is for a schedule II opioid drug., 17 Gm By Mouth Daily,PRN:Constipation,Instr:dissolve in water, 160, cm, 03/19/24 8:42:00 EDT, Height, 88.7, kg, 03/12/24 3:12:00 EDT, Dry Weight Start Date: 03/23/24 Status: Ordered Quantity: 255.0 Unit: g Repeat number: 2 oxyCODONE 5 mg oral tablet 5 mg, 1, tablet, By Mouth, 2 times a day, PRN severe pain, # 12 tablet, Refills 0, Tot. Refills 0, Maintenance, 04/17/24 9:37:00 AM EDT, Route to Pharmacy Electronically, Travel Notes STORE #[id number], Partial fill upon patient request if the prescription is for a schedule II opioid drug., 168, cm, 04/17/24 9:08:00 EDT, Height, 84.5, kg, 04/06/24 21:03:00 EDT, Dry Weight Start Date: 04/17/24 Status: Ordered Quantity: 12.0 Unit: tablet Repeat number: 1 pantoprazole 40 mg oral delayed release tablet 1 tablet = 40 mg, By Mouth, Daily, # 90 tablet, 1 Refills, Maintenance, 03/21/24 11:02:00 AM EDT, [facility], 160, cm, 03/19/24 8:42:00 EDT, Height, 88.7, kg, 03/12/24 3:12:00 EDT, Dry Weight Start Date: 03/21/24 Stop Date: 09/17/24 Status: Ordered Quantity: 90.0 Unit: tablet Repeat number: 2 pioglitazone 15 mg oral tablet 1 tablet = 15 mg, By Mouth, Daily, # 90 tablet, 1 Refills, Maintenance, 04/03/24 11:06:00 AM EDT, Tablet, Travel Notes STORE #[id number], 160, cm, 03/30/24 9:26:00 EDT, Height, 88.7, kg, 03/12/24 3:12:00EDT, Dry Weight Start Date: 04/03/24 Status: Ordered Quantity: 90.0 Unit: tablet Repeat number: 2 prednisolone ophthalmic acetate 1% suspension 5 mL, 0 Refill(s), SHAKE LIQUID AND INSTILL 1 DROP IN RIGHT EYE FOUR TIMES DAILY FOR 4 DAYS THEN STOP, 0 Refills, 03/19/24 8:38:00 AM EDT, Partial fill upon patient request if the prescription is for aschedule II opioid drug. Start Date: 03/19/24 Status: Ordered Repeat number: 1 topiramate 50 mg oral tablet 1 tablet = 50 mg, By Mouth, Daily, # 90 tablet, 1 Refills, Soft Stop, 08/09/24 11:03:00 AM EST, Travel Notes STORE #[id number], 163, cm, 07/26/24 8:34:00 EST, Height, 92.2, kg, 07/19/24 21:11:00 EST, DryWeight Start Date: 08/09/24 Stop Date: 02/05/25 Status: Ordered Quantity: 90.0 Unit: tablet Repeat number: 2 venlafaxine 150 mg oral capsule, extended release 1 capsule, By Mouth, Daily, # 90 capsule, 3 Refills, Maintenance, 08/09/24 11:01:00 AM EST, Travel Notes STORE #[id number], 163, cm, 07/26/24 8:34:00 EST, Height, 92.2, kg, 07/19/24 21:11:00 EST, Dry Weight Start Date: 08/09/24 Status: Ordered Quantity: 90.0 Unit: capsule Repeat number: 4 Vitamin D3 1000 intl units oral tablet 1 tablet = 25 mcg, By Mouth, Daily, # 90 tablet, 2 Refills, Maintenance, 06/27/24 3:06:00 PM EST, Tablet, Travel Notes STORE #[id number], Partial fill upon patient request if the prescription is for a schedule II opioid drug., 168, cm, 06/19/24 8:34:00 EST, Height, 84.5, kg, 04/06/24 21:03:00 EDT, DryWeight Start Date: 06/27/24 Stop Date: 03/24/25 Status: Ordered Quantity: 90.0 Unit: tablet Repeat number: 3 ZyrTEC 10 mg oral tablet 1 tablet = 10 mg, By Mouth, Daily, prn allergy symptoms, # 30 tablet, 2 Refills, Maintenance, 05/17/24 8:56:00 AM EST, Tablet, [facility] #[id number], Partial fill upon patient request if the prescription is for a schedule II opioid drug., 168, cm, 05/17/24 8:37:00 EST, Height, 84.5, kg, 04/06/24 21:03:00 EDT, Dry Weight Start Date: 05/17/24 Stop Date: 08/15/24 Status: Ordered Quantity: 30.0 Unit: tablet Repeat number: 3 Problem List Condition Confirmation Course Effective Dates Status Health Status Informant Abdominal pain 1 Confirmed Active Allergic to shellfish Confirmed Active Breast pain Confirmed Active Back pain, chronic Confirmed Active Chronic pelvic pain in female Confirmed Active Constipation Confirmed Active Controlled substance agreement terminated 2 Confirmed 2014 Active Gastroparesis Confirmed Active Hypercholesterolemia Confirmed Active Leukocytoclastic vasculitis Confirmed Active Irritable bowel syndrome (IBS) Confirmed Active Abdominal pain, bilateral lower quadrant Confirmed Active Macular edema Confirmed Active Migraine Confirmed Active Anxiety and depression Confirmed Active Perimenopausal - hard to clarify due to prior hysterectomy Confirmed Active Diabetic retinopathy Confirmed Active Rheumatoid factor positive 3 Confirmed Active Last Pap smear 06/12/14 negative with negative HPV. Status post total vaginal hysterectomy 04/12/16 with negative cervical pathology. No further Pap smears needed Confirmed Active Allergic rhinitis, seasonal Confirmed Active Severe obesity (BMI 35.0-39.9) with comorbidity Confirmed Active Sialoadenitis, acute -2022, saw ENT Confirmed 2022 Active Hepatic steatosis Confirmed Active Diabets: Type II diabetes mellitus with complication, uncontrolled 4 Confirmed Active 1recurrent abdominal pain, multiple CT scans in past, multiple u/s. No pathological findings 2Pt brought only only of her four controlled substances for pill count and was to return with the three others but didn't. Also utox was neg for all. 3seen at [facility] 07/01- weaky positive- not significant 4Had Optho exam, provider saw some retinal abnormality but not hemorrhage--will follow up in 6 months Social History Social History Type Response Smoking Status Former smoker entered on: 04/12/16 Sex Sex Representation Female (finding) 1QUIT 7-8 YRS AGO Patient Care team information Care Team Personnel Name: Elsa Laguerre Position: [facility] Hospital Armed Security Officer Member Role: Primary Care Nurse Name: Eva Mercaod RN Position: [facility] RN Member Role: Primary Care Nurse Name: Camilla Camara NP Position: [facility] PCO Associate Professional Member Role: PCP Address: [address] [place] [address] Telecom: Name: Andrea Del Toro RN Position: [facility] RN Member Role: Primary Care Nurse Name: Eliza Shook RN Position: [facility] RN Member Role: Primary Care Nurse Name: Ashley Dixon RN Position: [facility] RN Member Role: Primary Care Nurse Care Team Related Persons Name: KRISTOPHER ESCOBAR Name: SLAVA ESCOBAR Name: FRANKLIN RUST Name: NICOLE WADSWORTH Name: KRISTOPHER JANE Insurance Providers Guarantor name: MARTY JANE Health Plan Information #: 1 Payer: [facility] Member Number: NA Policy Number: NA Group Number: NA
--- OUTSIDE RECORDS SUMMARY | 2024-09-05 20:06 | XMS_ITS | Continuity of Care Document ---
Author Organization [facility] Address [address] [place] [address]- Care Team Providers Care Lab Analyst Name Role Phone Camilla Camara NP Primary Care Physician [facility]): 07[facility]24 - 08/22/24 [facility] [address] [place] [phone] Encounter Type: Triage Allergies, Adverse Reactions, Alerts Substance Criticality Severity Reaction Reaction Severity Status shellfish throat swells Active Hill throat swells Active Contrast Dye 1 hives Activ e Other Food Allergy kiwi - throat swells Active Imitrex 2 Active 1In [facility] 09/04/20, resolved with Benadryl 2chest pain Immunizations Given and Recorded Vaccine Date Status Refusal Reason tetanus/diphtheria/pertussis, acel(Tdap) 06/11/24 Recorded tetanus/diphtheria/pertussis, acel(Tdap) 06/28/23 Given SARS-CoV-2(COVID-19)mRNA-LNP vac([id number]) 06/11/24 Recorded SARS-CoV-2(COVID-19)mRNA-LNP vac([id number]) 07/15/23 Recorded pneumococcal 20-valent conjugate vaccine 1 [...] hepatitis B adult vaccine 7 04/17/24 Given [id number] 12y+ bivalent booster vax 05/04/22 Given SARS-CoV-2 mRNA (clubmiy-hoyq-jjjhs) vax 02/26/22 Recorded SARS-CoV-2 (COVID-19) mRNA BNT-162b2 [...] 11 03/22/08 Give n 1Result Comment: mfd: [employer] 2Result Comment: [04/14/2017] [facility]#[id number] 3Admin Note: VIS GIVEN VIS DATE 01/10/2012 4Admin Note: vis given 02/02/11 5Admin Note: VIS GIVEN 02/17/10 honduran 6Admin Note: VIS GIVEN 7Result Comment: [employer] 8Admin Note: vis 9Admin Note: vis given dated 02/16 10Admin Note: VIS given 11Admin Note: VIS Problem List Condition Confirmation Course Effective Dates [...] Care Team Personnel Name: Elsa Laguerre Position: [facility] Hospital Library Services Coordinator Member Role: Primary Care Nurse Name: Eva Mercado RN Position: [facility] RN Member Role: Primary Care Nurse Name: Camilla Camara NP Position: [facility] PCO Associate Professional Member Role: PCP Address: [address] [place] [address] Telecom: Name: Andrea Del Toro RN Position: [facility] RN Member Role: Primary Care Nurse Name: Eliza Shook RN Position: [facility] RN Member Role: Primary Care Nurse Name: Ashley Dixon RN Position: S RN Member Role: Primary Care Nurse Care Team Related Persons Name: KRISTOPHER ESCOBAR Name: SLAVA ESCOBAR Name: FRANKLIN RUST Name: NICOLE WADSWORTH Name: KRISTOPHER JANE Insurance Providers Guarantor name: [facility] Information #: [address]ayer: [facility] Member Number: NA Policy Number: NA Group Number: NA
--- OUTSIDE RECORDS SUMMARY | 2024-09-05 20:06 | XMS_ITS | Continuity of Care Document ---
Author Organization [facility] Address [address] [place] [address]- Care Team Providers Care Athlete Manager Name Role Phone Camilla Camara NP Primary Care Physician Encounter [facility] Date(s): 07/19/24 - 08/18/24 [facility] [address] [place] [phone] Encounter Type: Triage Allergies, Adverse Reactions, Alerts Substance Criticality Severity Reaction Reaction Severity Status shellfish throat swells Active Other Food Allergy kiwi - throat swells Active Imitrex 1 Active Hill throat swells Active Contrast Dye 2 hives Activ e 1chest pain 2In [facility] 09/04/20, resolved with Benadryl Immunizations Given and Recorded Vaccine Date Status Refusal Reason tetanus/diphtheria/pertussis, acel(Tdap) 06/11/24 Recorded tetanus/diphtheria/pertussis, acel(Tdap) 06/28/23 Given SARS-CoV-2(COVID-19)mRNA-LNP vac([id number]) 06/11/24 Recorded SARS-CoV-2(COVID-19)mRNA-LNP vac([id number]) 07/15/23 Recorded pneumococcal 20-valent conjugate vaccine 1 [...] hepatitis B adult vaccine 7 04/17/24 Given [id number] 12y+ bivalent booster vax 05/04/22 Given SARS-CoV-2 mRNA (hbcbjsy-wftm-bldit) vax 02/26/22 Recorded SARS-CoV-2 (COVID-19) mRNA BNT-162b2 [...] 11 03/22/08 Give n 1Result Comment: mfd: [employer], [employer] 2Result Comment: [04/14/2017] [facility]#[id number] 3Admin Note: VIS GIVEN VIS DATE 01/10/2012 4Admin Note: vis given 02/02/11 5Admin Note: VIS GIVEN 02/17/10 martiniquais 6Admin Note: VIS GIVEN 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[employer] 8Admin Note: vis 9Admin Note: vis given [...] Care Team Personnel Name: Elsa Laguerre Position: [facility] Hospital Coffin Maker Member Role: Primary Care Nurse Name: Eva Mercado RN Position: [facility] RN Member Role: Primary Care Nurse Name: Camilla Camara NP Position: [facility] PCO Associate Professional Member Role: PCP Address: [address] [place] [address] Telecom: Name: Andrea Del Toro RN Position: [facility] RN Member Role: Primary Care Nurse Name: Eliza Shook RN Position: [facility] RN Member Role: Primary Care Nurse Name: Ashley Dixon RN Position: S RN Member Role: Primary Care Nurse Care Team Related Persons Name: KRISTOPHER ESCOBAR Name: SLAVA ESCOBAR Name: FRANKLIN RUST Name: NICOLE WADSWORTH Name: KRISTOPHER JANE Insurance Providers Guarantor name: [facility] Information #: 1 Payer: [facility] Member Number: NA Policy Number: NA Group Number: NA
--- OUTSIDE RECORDS SUMMARY | 2024-09-05 20:06 | XMS_ITS | Clinical Summary ---
Author Organization [facility] Address [address] [place] [address] Phone Care Team Providers Care Gore Cutter Name Role Phone Camilla Camara DK Primary Care Provider [phone] Allergies Active Allergy Reactions Criticality Noted Date Comments Iodinated Contrast Media Hives 05/30/2024 Kiwi Anaphylaxis High 06/01/2024 Shellfish Derived Hives 05/30/2024 Medications amLODIPine (NORVASC) 5 mg tablet Take 1 tablet (5 mg total) by mouth 1 (one) time each day. 4 Active buPROPion XL (WELLBUTRIN XL) 150 mg 24 hr tablet Take 1 tablet (150 mg total) by mouth 1 (one) time each day. 4 Active ZyrTEC 10 mg tablet Take by mouth 1 (one) time each day. 4 Active Trulicity 1.5 mg/0.5 mL pen injector injection Inject 0.5 mL (1.5 mg total) under the skin 1 (one) time per week. 3 Active hyoscyamine (ANASPAZ,LEVSIN ) 0.125 mg tablet Take 1 tablet (0.125 mg total) by mouth every 4 (four) hours if needed for cramping. 4 Active insulin glargine (LANTUS SoloStar) 100 unit/mL (3 mL) injection pen Inject 80 Units under the skin at bedtime. Active insulin lispro (HumaLOG KwikPen) 100 unit/mL injection pen Inject 5 Units under the skin 3 (three) times a day before meals. Per sliding scale 4 Active Lyumjev KwikPen U-100 Insulin 100 unit/mL injection pen See Instructions, inject 14 units tid at the start of a meal or within 20 minutes after starting a meal and 6 units with snack MDD 48 units, # 15 mL, 11 Refills, Maintenance, 05/17/24 8:47:00 AM EST, Solution, [id number], replacing Humalog, 168, cm, 05/17/24 8:37:00 EST, Height, 84.5, kg, 04/06/24 21:03:00 EDT, Dry Weight 4 Active Linzess 72 mcg capsule Take 1 capsule (72 mcg total) by mouth 1 (one) time each day before breakfast. 4 Active losartan (COZAAR) 50 mg tablet Take 1 tablet (50 mg total) by mouth 1 (one) time each day. 4 Active lovastatin (MEVACOR) 40 mg tablet Take 1 tablet (40 mg total) by mouth 1 (one) time each day in the evening. Active metFORMIN XR (GLUCOPHAGE-XR) 500 mg 24 hr tablet Take 2 tablets (1,000 mg total) by mouth 2 (two) times a day with meals. 4 Active metoclopramide (REGLAN) 10 mg tablet Take 1 tablet (10 mg total) by mouth 3 (three) times a day before meals. 3 Active pantoprazole (PROTONIX) 40 mg EC tablet Take 1 tablet (40 mg total) by mouth 1 (one) time each day before breakfast. 4 09/18/19 25 Active pioglitazone (ACTOS) 15 mg tablet Take 1 tablet (15 mg total) by mouth 1 (one) time each day. 4 Active topiramate (TOPAMAX) 50 mg tablet Take 1 tablet (50 mg total) by mouth 1 (one) time each day. Active venlafaxine XR (EFFEXOR-XR) 150 mg 24 hr capsule Take 1 capsule (150 mg total) by mouth 1 (one) time each day. 4 Active venlafaxine XR (EFFEXOR-XR) 75 mg 24 hr capsule Take 1 capsule (75 mg total) by mouth 1 (one) time each day. Active HYDROmorphone (DILAUDID) 2 mg tablet Take 1 tablet (2 mg total) by mouth every 6 (six) hours if needed for severe pain. Max Daily Amount: 2 mg 10 tablet Active Active Problems Problem Noted Date Diagnosed Date Gastroparesis 05/30/2024 Abdominal pain, bilateral lower quadrant 024 Anxiety and depression 05/30/2024 Hypercholesterolemia 05/30/2024 Irritable bowel syndrome (IBS) 05/30/2024 Type 2 diabetes mellitus 05/30/2024 Overview (05/30/2024): Had Optho exam, provider saw some retinal abnormality but not hemorrhage--will follow up in 6 months Gastroparesis 05/30/2024 Medical History Medical History Date Comments Diabetes mellitus (CMS/HCC) Hypertension Depression Anxiety Irritable bowel syndrome H/O tubal ligation Social History Tobacco Use Types Packs/Day Years Used Date Smoking Tobacco: Former Cigarettes Tobacco Cessation:Counseling Given: Not Answered Alcohol Use Standard Drinks/Week Comments Never 0 (1 standard drink = 0.6 oz pur e alcohol) Interpersonal Safety Answer Date Record ed Physical Abuse 05/31/2024 Verbal Abuse 05/31/2024 Comments No Sex and Gender Information Value Date Recorded Sex Assigned at Female 06/01/2024 1:29 PM EST Legal Sex Female 4:17 AM EST Gender Identity Female 06/01/2024 1:29 PM EST Sexual Orientation Straight 06/01/2024 1: 29 PM EST Obstetrics History Last Filed Vital Signs Vital Sign Reading Time Taken Comments Blood Pressure 148/89 06/01/2024 11:35 AM EST Pulse 111 06/01/2024 11:35 AM EST Temperature 36.9 ??C (98.4 ??F) 06/01/2024 11:[address] Respiratory Rate 20 06/01/2024 11:35 AM EST Oxygen Saturation 100% 06/01/2024 11:35 AM EST Inhaled Oxygen Concentration - - Weight 87.5 kg (193 lb) 06/01/2024 11:35 AM EST Height 162.6 cm (5' 4 ) 06/01/2024 11:35 AM EST Body Mass Index 33.13 06/01/2024 11:35 AM EST Plan of Treatment Health Maintenance Due Date Last Done Comments Breast Cancer Screening 1976 Diabetes: Annual Foot Exam 1986 Diabetes: Annual Retina Eye Exam 1986 Hepatitis A Vaccines (1 of 2 - Risk 2-dose series) 1995 Cervical Cancer Screening: Pap Smear 1997 Cholesterol Screening (Lipid Panel) 06/13/2022 Colorectal Cancer Screening: Colonoscopy 06/13/2022 Depression Screening 06/13/2022 HIV Screening 06/13/2022 Hepatitis C Screening 06/13/2022 Social Influencers of Health Screening 06/13/2022 COVID-19 Vaccine () 03/11/2024 07/15/2023, 02/26/2022, 04/09/2021, Additional history exists Hepatitis B Vaccines (2 of 2 - CpG 2-dose series) 05/15/2024 04/17/2024 Diabetes: Annual Urine Albumin-Creatinine Ratio (uACR) 05/30/2024 Diabetes: Blood Sugar Control Test (HGBA1C) 11/27/2024 05/30/2024 Diabetes: Annual GFR (Glomerular Filtration Rate) 06/01/2025 06/01/2024, 05/31/2024, 05/30/2024 Hypertension/CHF/CAD Annual BMP Blood Test 06/01/2025 06/01/2024, 05/31/2024, 05/30/2024 DTaP,Tdap,and Td Vaccines (2 - Td or Tdap) 06/28/2033 06/28/2023 MMR Vaccines Aged Out 08/27/2010 No longer eligi ble based on patient's age to complete this topic Influenza Vaccine Completed 05/17/2024, , 05/04/2022, Additional history exists Pneumococcal Vaccine: Pediatrics (0 to 5 Years) and At-Risk Patients (6 to 64 Years) Completed 05/17/2024, 07/19/2009 HIB Vaccines Aged Out No longer eligi ble based on patient's age to complete this topic HPV Vaccines Aged Out No longer eligi ble based on patient's age to complete this topic IPV Vaccines Aged Out No longer eligi ble based on patient's age to complete this topic Meningococcal ACWY Vaccine Aged Out N o longer eligible based on patient's age to complete this topic Meningococcal B Vacine Aged Out No lo nger eligible based on patient's age to complete this topic RSV Immunization Patients Under 20 months Aged Out No longer eligible based on patient's age to complete this topic Varicella Vaccines Aged Out No longer eligible based on patient's age to complete this topic Procedures Procedure Name Priority Date/Time Associated Diagnosis Comments BASIC METABOLIC PANEL STAT 06/01/2024 11:46 AM EST HEMOGLOBIN A1C Routine 05/30/2024 9:16 PM EST from Last 3 Months or Most Recently Relevant to Health Maintenance Results * (ABNORMAL) Basic metabolic panel (06/01/2024 11:46 AM EST) Sodium 131(L) 133 - 145 mmol/L LAB CHEMISTRY METHOD 06/01/2024 12:40 PM [facility] Potassium 4.8 3.5 - 5.5 mmol/L LAB CHEMISTRY METHOD 06/01/2024 12:40 PM [facility] Chloride 102 96 - 110 mmol/L LAB CHEMISTRY METHOD 06/01/2024 12:40 PM [facility] CO2 24 21 - 32 mmol/L LAB CHEMISTRY METHOD 06/01/2024 12:40 PM [facility] Anion Gap 5 3 - 11 LAB CHEMISTRY METHOD 06/01/2024 12:40 PM [facility] Glucose 479(HH) 70 - 100 mg/dL LAB CHEMISTRY METHOD 06/01/2024 12:40 PM [facility] BUN 14 5 - 25 mg/dL LAB CHEMISTRY METHOD 06/01/2024 12:40 PM [facility] Creatinine 0.98 0.50 - 1.10 mg/dL LAB CHEMISTRY METHOD 06/01/2024 12:40 PM [facility] eGFR 72 >=60 mL/min/1. 73m2 LAB CHEMISTRY METHOD 06/01/2024 12:40 PM EST [facility] Comment:Calculation based on the??Chronic Kidney Disease Epidemiology Collaboration (CKD-EPI) equation refit??without adjustment for race. BUN/Creatinine Ratio 14.3 LAB CHEMISTRY METHOD 06/01/2024 12:40 PM EST [facility] Calcium 9.8 8.5 - 10.5 mg/dL LAB CHEMISTRY METHOD 06/01/2024 12:40 PM EST [facility] Blood Venous blood specimen / Unknown Venipuncture / Unknown 06/01/2024 11:46 AM EST 06/01/2024 11:59 AM EST Hever Mg MD LAB BLOOD ORDERABLES Zofia l Result Performing Organization Address [facility]/ZIP Co de Phone Number [facility] [address] [place] [address], [place] [phone] * (ABNORMAL) Hemoglobin A1c (05/30/2024 9:16 PM EST) Hemoglobin A1C 8.1(H) <6.5 % LAB CHEMISTRY METHOD 05/31/2024 12:43 PM EST [facility] Mean Bld Glu Estim. 186 mg/dL LAB CHEMISTRY METHOD 05/31/2024 12:43 PM EST [facility] Blood Venous blood specimen / Unknown Venipuncture / Unknown 05/30/2024 9:16 PM EST 05/30/2024 9:23 PM EST Marino BERMUDEZ LAB BLOOD ORDERABLES Final Res ult [facility] [address] [place] [address], [place] [phone] from Last 3 Months or Most Recently Relevant to Health Maintenance Insurance [facility] MEDICAID ADVANTAGE Advance Directives * Full Code - Default (Latest Code Status on File) Date Activated Date Inactivated Comments 05/30/2024 8:40 PM 05/31/2024 8:51 PM This is or dalton is used when code status has not been discussed with the patient, or code status is otherwise unknown/unconfirmed To update the patient's code status, place a code status order. Do not modify or discontinue any currently active code status orders. Care Teams Gore Cutter Relationship Specialty Start Date End Date Camilla Camara NP [address] [place] [id number] PCP - General Nurse Practitioner 05/30/24
--- OUTSIDE RECORDS SUMMARY | 2024-09-05 20:06 | XMS_ITS | Continuity of Care Document ---
Author Organization [facility] Address [address] [place] [address]- Care Team Providers Care Fisher Trawl Line Name Role Phone Camilla Camara NP Primary Care Physician Encounter [facility] Date(s): 07/24/24 - 08/23/24 [facility] [address] [place] [phone] Encounter Type: Triage Allergies, Adverse Reactions, Alerts [...] 06/11/24 Recorded tetanus/diphtheria/pertussis, acel(Tdap) 06/28/23 Given SARS-CoV-2(COVID-19)mRNA-LNP vac([id number]) 06/11/24 Recorded SARS-CoV-2(COVID-19)mRNA-LNP vac(rav312) 07/15/23 Recorded pneumococcal 20-valent conjugate vaccine 1 [...] hepatitis B adult vaccine 7 04/17/24 Given [id number]-[id number] 12y+ bivalent booster vax 05/04/22 Given SARS-CoV-2 mRNA (pteggrw-cgqn-gscnz) vax 02/26/22 Recorded SARS-CoV-2 (COVID-19) mRNA BNT-162b2 [...] 11 03/22/08 Give n 1Result Comment: mfd: [employer], [employer] 2Result Comment: [04/14/2017] [facility]#[id number] 3Admin Note: VIS GIVEN VIS DATE 01/10/2012 4Admin Note: vis given 02/02/11 5Admin Note: VIS GIVEN 02/17/10 pitcairn islander 6Admin Note: VIS GIVEN 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[employer] 8Admin Note: vis 9Admin Note: vis given [...] Care Team Personnel Name: Elsa Laguerre Position: [facility] Hospital Bowling Ball Marker Member Role: Primary Care Nurse Name: Eva Mercado RN Position: [facility] RN Member Role: Primary Care Nurse Name: Camilla Camara NP Position: [facility] PCO Associate Professional Member Role: PCP Address: [address] [place] [address] Telecom: Name: Andrea Del Toro RN Position: [facility] RN Member Role: Primary Care Nurse Name: Eliza Shook RN Position: [facility] RN Member Role: Primary Care Nurse Name: Ashley Dixon RN Position: S RN Member Role: Primary Care Nurse Care Team Related Persons Name: KRISTOPHER ESCOBAR Name: SLAVA ESCOBAR Name: FRANKLIN RUST Name: NICOLE WADSWORTH Name: KRISTOPHER JANE Insurance Providers Guarantor name: [facility] Information #: 1 [address]ayer: [facility] Member Number: NA Policy Number: NA Group Number: NA
--- OUTSIDE RECORDS SUMMARY | 2024-09-05 20:06 | XMS_ITS | Continuity of Care Document ---
Author Organization [facility] Address [address] [place] [address]- Care Team Providers Care Quality Assurance Monitor Name Role Phone Camilla Camara NP Primary Care Physician Encounter [facility] Date(s): 07/17/24 - 08/16/24 [facility] [address] [place] [phone] Encounter Type: Triage Allergies, Adverse Reactions, Alerts Substance Criticality Severity Reaction Reaction Severity Status shellfish throat swells Active Imitrex 1 Active Hill throat swells Active Contrast Dye 2 hives Activ e Other Food Allergy kiwi - throat swells Active 1chest pain 2In [facility] 09/04/20, resolved with Benadryl Immunizations Given and Recorded Vaccine Date Status Refusal Reason tetanus/diphtheria/pertussis, acel(Tdap) 06/11/24 Recorded tetanus/diphtheria/pertussis, acel(Tdap) 06/28/23 Given SARS-CoV-2(COVID-19)mRNA-LNP vac([id number]) 06/11/24 Recorded SARS-CoV-2(COVID-19)mRNA-LNP vac([id number]) 07/15/23 Recorded pneumococcal 20-valent conjugate vaccine 1 [...] hepatitis B adult vaccine 7 04/17/24 Given [id number] 12y+ bivalent booster vax 05/04/22 Given SARS-CoV-2 mRNA (tyacalo-dnsg-rxbib) vax 02/26/22 Recorded SARS-CoV-2 (COVID-19) mRNA BNT-162b2 [...] 11 03/22/08 Give n 1Result Comment: mfd: [employer], [employer] 2Result Comment: [04/14/2017] 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 [employer] 8Admin Note: vis 9Admin Note: vis given [...] Care Team Personnel Name: Elsa Laguerre Position: [facility] Hospital Inspector Materials And Processes Member Role: Primary Care Nurse Name: Eva Mercado RN Position: [facility] RN Member Role: Primary Care Nurse Name: Camilla Camara NP Position: [facility] PCO Associate Professional Member Role: PCP Address: [address] [place] [address] Telecom: Name: Andrea Del Toro RN Position: [facility] RN Member Role: Primary Care Nurse Name: Eliza Shook RN Position: [facility] RN Member Role: Primary Care Nurse Name: Ashley Dixon RN Position: S RN Member Role: Primary Care Nurse Care Team Related Persons Name: KRISTOPHER ESCOBAR Name: SLAVA ESCOBAR Name: FRANKLIN RUST Name: NICOLE WADSWORTH Name: KRISTOPHER JANE Insurance Providers Guarantor name: [facility] Information #: 1 Payer: [facility] Member Number: NA Policy Number: NA Group Number: NA
--- OUTSIDE RECORDS SUMMARY | 2024-09-05 20:06 | XMS_ITS | Continuity of Care Document ---
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 Role Phone Camilla Camara NP Primary Care Physician [phone] Encounter [facility] Date(s): 06/14/24 - 08/15/24 [facility] [address] [place] [id number] Attending Physician: Jenny Eckert MD Admitting Physician: Jenny Eckert MD Referring Physician: Camilla Camara NP Encounter Type: Pre-OutPatient One Time Allergies, Adverse Reactions, Alerts Substance Criticality Severity Reaction Reaction Severity Status shellfish throat swells Active Contrast Dye 1 hives Activ e Other Food Allergy kiwi - throat swells Active Imitrex 2 Active [place] throat swells Active 1In [facility] 09/04/20, resolved with Benadryl 2chest pain Immunizations Given and Recorded Vaccine Date Status Refusal Reason tetanus/diphtheria/pertussis, acel(Tdap) 06/11/24 Recorded tetanus/diphtheria/pertussis, acel(Tdap) 06/28/23 Given SARS-CoV-2(COVID-19)mRNA-LNP vac([id number]) 06/11/24 Recorded SARS-CoV-2(COVID-19)mRNA-LNP vac(unc133) 07/15/23 Recorded pneumococcal 20-valent conjugate vaccine 1 [...] hepatitis B adult vaccine 7 04/17/24 Given [id number] 12y+ bivalent booster vax 05/04/22 Given SARS-CoV-2 mRNA ([id number]) vax 02/26/22 Recorded SARS-CoV-2 (COVID-19) mRNA BNT-162b2 [...] 11 03/22/08 Give n 1Result Comment: mfd: [employer], [employer] 2Result Comment: [04/14/2017] [facility] [place]#64964-466-54 3Admin Note: VIS GIVEN VIS DATE 01/10/2012 4Admin Note: vis given 02/02/11 5Admin Note: VIS GIVEN 02/17/10 lao 6Admin Note: VIS GIVEN 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 8Admin Note: vis 9Admin Note: vis given dated 02/16 10Admin Note: VIS given 11Admin Note: VIS Medications amLODIPine 5 mg oral tablet 1 tablet, By Mouth, Daily, # 90 tablet, 3 Refills, Maintenance, 08/09/24 11:01:00 AM EST, [facility] #[id number], 163, cm, 07/26/24 8:34:00 EST, Height, 92.2, kg, 07/19/24 21:11:00 EST, Dry Weight Start Date: 08/09/24 Status: Ordered Quantity: 90.0 Unit: tablet Repeat number: 4 Baqsimi Two Pack 3 mg nasal powder See Instructions, 3 mg Once In one nostril; dose does not need to be inhaled may repeat in 15 minutes, # 2 each, 5 Refills, Maintenance, 04/16/24 9:06:00 AM EDT, [facility] #[id number], Partial fill upon patient request if the [...] 1 Refills, Maintenance, 07/25/24 1:42:00 PM EST, [facility] #[id number], 90, TAKE 1 TABLET BY MOUTH EVERY 24 HOURS TO TAKEWITH VENLAFAXINE, 163, cm, 07/24/24 9:09:00 EST, Height, 92.2, kg, 07/19/24 21:11:00 EST, Dry Weight Start Date: 07/25/24 Status: Ordered Quantity: 90.0 Unit: tablet Repeat number: 1 Cequr Simplicity 2U 4-day ([facility] [place]: [address]-02) Cequr Simplicity 2U 4-day ([facility] [place]: [address]-73), See Instructions, # 1 each, Refills 11, Tot. Refills 11, Maintenance, apply patch as directed and change every 4 days. use to inject Humalog per sliding scale MDD 60 units, 08/09/24 2:30:00 PM EST, Please dispense 1 boxes. Each box contains 8 patches. This is a 30 day supply., Supply, 163, cm, 07/26/24 8:34:00 EST, Height, 92.2, kg, 07/19/24 21:11:00EST, Dry Weight Start Date: 08/09/24 Status: Ordered Quantity: 1.0 Unit: each Repeat number: 12 Cequr Simplicity Trolley Worker ([facility] [place] [address]-44) Cequr Simplicity Trolley Worker ([facility] [place] [address]-18), See Instructions, # 1 each, Refills 0, Tot. Refills 0, Maintenance, Use as directed to place Cequar simplicity patch, 08/09/24 2:30:00 PM EST, [facility] [place] [address]-45; Please dispense 1 insterter, Supply, 163, cm, 07/26/24 8:34:00 EST, Height, 92.2, kg, 07/19/24 21:11:00 EST, Dry Weight Start Date: 08/09/24 Status: Ordered Quantity: 1.0 Unit: each Repeat number: 1 desonide 0.05% topical cream Dr Jose Malagon - dermatology, 0 Refills, Maintenance, 07/24/24 10:29:00 AM EST Start Date: 07/24/24 Status: Ordered Repeat number: 1 fluocinolone 0.01% topical oil Dr Jose Barney dermatology, 0 Refills, Maintenance, 07/24/24 10:29:00 AM [...] Cequr Simplicity patch using sliding scale MDD 60 units, # 20 mL, 11 Refills, Maintenance, 08/09/24 2:34:00 PM EST, [facility] #[id number], replacing Humalog Kwikpens, 163, cm, 07/26/24 8:34:00 EST, Height, 92.2, kg, 07/19/24 21:11:00 EST, Dry Weight Start Date: 08/09/24 Status: Ordered Quantity: 20.0 Unit: mL Repeat number: 12 Humalog Kwik Pen 100 units/mL subcutaneous injection See Instructions, take 28-46 units 15 minutes before each meal, snacks, and coffee per sliding scales MDD 150 units, # 45 mL, 11 Refills, Maintenance, 07/27/24 6:23:00 PM EST, [id number], dose increase, 163, cm, 07/26/24 8:34:00 EST, Height, 92.2, kg, 07/19/24 21:11:00 EST, Dry Weight Start Date: 07/27/24 Status: Ordered Quantity: 45.0 Unit: mL Repeat number: 12 hydrOXYzine hydrochloride 25 mg oral tablet 1 tablet = 25 mg, By Mouth, 4 times a day, PRN for itching, # 40 tablet, 0 Refills, Acute 06/11/25 11:38:00 AM EST, 06/11/24 11:38:00 AM EST, Tablet, [facility] #[id number], Partial fill upon patient request if the [...] tablet, 1Refills, Maintenance, 12/28/23 1:40:00 PM EDT, [facility] #[id number], Partial fill upon patient request if the [...] 9:05:00 AM EDT, Route to Pharmacy Electronically, [facility] #[id number], Partial fill upon patient request if the [...] 5:11:00 PM EDT, 07/17/24 5:11:00 PM EST, [place], [facility] #[id number], Partial fill upon patient request if the [...] 11 Refills, Maintenance, 07/27/24 6:22:00 PM EST, [facility] #[id number], increased dose, 163, cm, 07/26/24 8:34:00 EST, Height, 92.2, kg, 07/19/24 21:11:00 EST, Dry Weight Start Date: 07/27/24 Status: Ordered Quantity: 30.0 Unit: mL Repeat number: 12 Linzess 72 mcg oral capsule 1 capsule = 72 mcg, By Mouth, Daily, do not crush or chew, # 30 capsule, 0 Refills, Maintenance, 04/12/24 8:53:00 AM EDT, Capsule, [facility] #[id number], Partial fill upon patient request if theprescription [...] 9:29:00 AM EDT, Route to Pharmacy Electronically, [facility] #[id number], Partialfill upon patient request if the prescription is for a schedule II opioid drug., 168, cm, 04/17/24 9:08:00 EDT, Height, 84.5, kg, 04/06/24 21:03:00 EDT, Dry Weight Start Date: 04/17/24 Status: Ordered Quantity: 90.0 Unit: tablet Repeat number: 3 lovastatin 40 mg oral tablet 1 tablet, By Mouth, Daily in PM, FOR CHOLESTEROL., # 90 tablet, 1 Refills, Maintenance, 03/01/24 9:55:00 AM EDT, [facility] #[id number], 163, cm, 03/01/24 9:14:00 EDT, Height, 82, kg, 02/12/24 20:07:00 EDT, Dry Weight Start Date: 03/01/24 Status: Ordered Quantity: 90.0 Unit: tablet Repeat number: 2 metFORMIN 500 mg oral tablet, extended release 2 tablet = 1,000 mg, By Mouth, 2 times a day, with food, # 360 tablet, 4 Refills, Maintenance, 05/15/24 9:09:00 AM EST, ER Tablet, [facility] #[id number], dose increase, replacing previous metformin prescription, 168, cm, 05/15/24 8:39:00 EST, Height, 84.5, kg, 04/06/24 21:03:00 EDT, Dry Weight Start Date: 05/15/24 Status: Ordered Quantity: 360.0 Unit: tablet Repeat number: 5 metoclopramide 10 mg oral tablet See Instructions, TAKE 1 TABLET BY MOUTH FOUR TIMES DAILY 30 MINUTES BEFORE MEALS AND AT BEDTIME, #120 tablet, 0 Refills, Maintenance, 04/10/24 9:19:00 AM EDT, [facility] #[id number], 168, cm, 04/06/24 21:03:00 EDT, Height, 84.5, kg, 04/06/24 21:03:00 EDT, Dry Weight Start Date: 04/10/24 Status: Ordered Quantity: 120.0 Unit: tablet Repeat number: 1 MiraLax oral powder for reconstitution = 17 Gm, By Mouth, Daily, PRN Constipation, dissolve in water, # 255 Gm, 1 Refills, Maintenance, 03/23/24 1:27:00 PM EDT, [facility] #[id number], Partial fill upon patient request if the [...] 9:37:00 AM EDT, Route to Pharmacy Electronically, [facility] #[id number], Partial fill upon patient request if the [...] Refills, Maintenance, 04/03/24 11:06:00 AM EDT, Tablet, [facility] #[id number], 160, cm, 03/30/24 9:26:00 EDT, Height, 88.7, [...] Refills, Soft Stop, 08/09/24 11:03:00 AM EST, [facility] #[id number], 163, cm, 07/26/24 8:34:00 EST, Height, 92.2, kg, 07/19/24 21:11:00 EST, DryWeight Start Date: 08/09/24 Stop Date: 02/05/25 Status: Ordered Quantity: 90.0 Unit: tablet Repeat number: 2 venlafaxine 150 mg oral capsule, extended release 1 capsule, By Mouth, Daily, # 90 capsule, 3 Refills, Maintenance, 08/09/24 11:01:00 AM EST, [facility] #[id number], 163, cm, 07/26/24 8:34:00 EST, Height, 92.2, kg, 07/19/24 21:11:00 EST, Dry Weight Start Date: 08/09/24 Status: Ordered Quantity: 90.0 Unit: capsule Repeat number: 4 Vitamin D3 1000 intl units oral tablet 1 tablet = 25 mcg, By Mouth, Daily, # 90 tablet, 2 Refills, Maintenance, 06/27/24 3:06:00 PM EST, Tablet, [facility] #[id number], Partial fill upon patient request if the [...] Refills, Maintenance, 05/17/24 8:56:00 AM EST, Tablet, [facility] #[id number], Partial fill upon patient request if the [...] Confirmed Active Anxiety and depression Confirmed Active Obese class I Confirmed Active Perimenopausal - hard to clarify due to prior hysterectomy Confirmed Active Diabetic retinopathy Confirmed Active Rheumatoid factor positive 3 Confirmed Active Last Pap smear 06/12/14 negative with negative HPV. Status post total vaginal hysterectomy 04/12/16 with negative cervical pathology. 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 Member Role: Primary Care Nurse Name: Eva Mercado RN Position: [facility] RN Member Role: Primary Care Nurse Name: Camilla Camara NP Position: [facility] PCO Associate Professional Member Role: PCP Address: [address] [place] [address] [place] [employer]: Name: Andrea Del Toro RN Position: S RN Member Role: Primary Care Nurse Name: Eliza Shook RN Position: S RN Member Role: Primary Care Nurse Name: Ashley Dixon RN Position: S RN Member Role: Primary Care Nurse Care Team Related Persons Name: KRISTOPHER ESCOBAR Name: SLAVA ESCOBAR Name: FRANKLIN RUST Name: NICOLE WADSWORTH Name: KRISTOPHER JANE Insurance Providers Guarantor name: MARTY JANE Health Plan Information #: 1 Payer: [facility] Member Number: [id number] Policy Number: NA Group Number: [id number] Health Plan Information #: 2 Payer: [facility] Member Number: [id number] Policy Number: NA Group Number: NA
--- OUTSIDE RECORDS SUMMARY | 2024-09-05 20:07 | XMS_ITS | Data Portability ---
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 On examination there is no sign of infection or fluid bilaterally. Audiometric testing was obtained today showing sensorineural hearing loss bilaterally, more notable on the right side. Given global asymmetry in the setting of vertigo and nausea she likely had a mild sudden sensorineural hearing loss in relation to her URI. We discussed options today including IT dexamethasone and oral prednisone. Her hearing loss does not seem significant enough to warrant IT dexamethasone. She is however an insulin-dependen t diabetic. Her blood sugars have been high recently due to her illness. 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 She believes they would be able to adjust her insulin levels to compensate for spikes associated with prednisone. She is very bothered by the degree of hearing loss though it is mild and would like to try the prednisone. We did discuss that it is likely hearing loss will resolve without intervention but she would like to try regardless. I have highly recommended she discuss this with her doctor prior to starting prednisone but will send to pharmacy. Recommended follow-up in 2 to 3 months with repeat hearing test. If there is persistent asymmetry consider MRI of the IAC to rule out retrocochlear pathology. She will complete her antibiotic as prescribed. All questions were answered. chris Not available 07/27/2024 11:41:09 Plan of Treatment Reminders Order Date Submit Date Provider Last Modified By Organization Details Last Modified Time Details Appointments Hearing Test 2024 09:30A M Hearing Test Not available Not available Not available Establish ed 15 2024 09:45A M JEWEL VILLALBA PA-C Not available Not available Not available Lab None recorded. Referral None recorded. Procedures None recorded. Surgeries None recorded. Imaging None recorded. Medication Orders prednison e 10 mg tablet 2024 025 [id number], [address], [place], [phone], 07/27/2024 11:40:09 Patient TargetsNo targets recorded. Patient InstructionsNo instructions recorded. Reason for Referral None Reported. Results Created Date Observation Date Name Description Value Unit Range Abnormal Flag Note LastModifiedBy Organization Detail LastModifiedTime 07/27/19 25 audio gram No observ ation record ed. BARCODE Not Available 2024 15:48:52 Result Notes None recorded. 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 tmaara drugs; Note: Date Diagnosed : 3 6:53 AM (Z79.84) Not Available [facility] 4 02:16:49 Type 2 diabetes mellitus without complicat ion 762541387 Active 2022 Type 2 diabetes mellitus without complicat ions; Note: Date Diagnosed : 3 1:48 PM (E11.9) Not Available [facility] 4 02:16:41 Long-term current use of drug therapy 452135872 Active 2022 Lng trm (crnt) use injectabl e non-insul in antidiabe tic drugs; Note: Date Diagnosed : 3 6:54 AM (Z79.85) Not Available [facility] 4 02:18:04 Acute sialoaden itis 910712610 Active 2022 Acute sialoaden itis; Note: Date Diagnosed : 3 1:46 PM (K11.21) Not Available [facility] 4 02:17:59 Sensorine ural hearing loss of bilateral ears 688409352 Active 2024 Mary aguilar [place] - [facility] 5 10:47:05 Sudden sensorine ural hearing loss 483306763 Active 2024 JEWEL VILLALBA PA-C [address] [facility],[place] [address], [place], [address] , [facility] - [facility] 5 11:39:17 Dizziness and giddiness 774596696 Active 2024 JEWEL VILLALBA PA-C [address] [place] [address],[place] [address], [place], [place], [address] , [facility] - [facility] 5 11:39:26 Acute suppurati ve otitis media without spontaneo us rupture of ear drum 22857741 Active 2024 JEWEL VILLALBA PA-C [address] [place] [address],[place] [address], [place], [address] , [facility] - [facility] 5 11:39:35 Problem Notes None recorded. Procedures Surgical History Date Name Laterality Status Provider Name and Address Organization Details Recorded Time 07/27/2024 Comp Audio with Tymps (64024 & 60957) completed Mary Nye [place] - [facility] 07/27/2024 10:46:51 Imaging Results Imaging Date Name Status LastModified by Organiz ation Details LastModified Time 07/27/2024 audiogram completed BARCODE Information no t available 07/27/2024 15:48:52 Procedure Notes None recorded. Medical Equipment None Reported. Allergies Allergen ID Allergen Name Allergen Category Reaction Reaction Severity Criticality Documentation Date Start Date Code Code System Note Provider Name and Address Organization Details Recorded Time 67795 Imitrex medicatio n other Not available Not available 11/22/2023 50084 3 RxNorm React ion: Unkno wn; Not Available [facility] 4 00:49:46 25983 Iodinated contrast media (substanc e) medicatio n other Not available Not available 11/22/2023 77413 2004 SNOMED React ion: Unkno wn; Not Available [facility] 4 00:50:00 Medications Name Sig Start Date Stop Date Status Note LastModified by Organization Details LastModified Time vitamin d3 25 mcg (1000 ut) tabs active Not Available Not Available Not Available losartan 50 mg tablet TAKE 1 TABLET BY MOUTH DAILY. STOP LISINOPR IL active Not Available Not Available No t Available pioglitaz one 15 mg tablet TAKE 1 TABLET BY MOUTH DAILY active Not Available Not Available No t Available desonide 0.05 % topical cream APPLY TO THE AFFECTED AREA UNDER BREAST AND GROIN TWICE DAILY NEEDED FOR FLARES DECREASE SYMPTOMS IMPROVE active Not Available Not Available No t Available prednison e 10 mg tablet Take 6 tabs once a day for 9 days, then take 5 tabs on day 10, 4 tabs on day 11, 3 tabs on day 12, 2 tabs on day 13, and 1 tab on day 14 active Not Available Not Available No t Available venlafaxi ne ER 75 mg capsule,e xtended release 24 hr TAKE 1 CAPSULE BY MOUTH DAILY TO TAKE WITH 150 MG TABLET TO TOTAL 225 MG EVERY DAY active Not Available Not Available No t Available ketoconaz ole 2 % shampoo APPLY TOPICALL Y TO THE SCALP 2 TIMES EVERY WEEK. LEAVE ON 5 MINUTES THEN WASH OFF active Not Available Not Available No t Available loperamid e 2 mg capsule TAKE 1 CAPSULE BY MOUTH EVERY 4 HOURS NEEDED FOR CONSTIPA TION active Not Available Not Available No t Available triamcino lone acetonide 0.5 % topical cream APPLY TOPICALL Y THREE TIMES DAILY FOR 14 DAYS active Not Available Not Available No t Available cetirizin e 10 mg tablet TAKE 1 TABLET BY MOUTH EVERY DAY FOR 30 DAYS NEEDED FOR ALLERGY SYMPTOMS active Not Available Not Available No t Available azithromy meir 250 mg tablet active Not Available Not Available No t Available ondansetr on HCl 4 mg tablet TAKE 1 TABLET BY MOUTH EVERY 8 HOURS NEEDED FOR NAUSEA OR VOMITING active Not Available Not Available No t Available lovastati n 40 mg tablet TAKE 1 TABLET BY MOUTH DAILY IN THE EVENING FOR CHOLESTE ROL active Not Available Not Available No t Available venlafaxi ne ER 150 mg capsule,e xtended release 24 hr TAKE 1 CAPSULE BY MOUTH DAILY active Not Available Not Available No t Available amlodipin e 5 mg tablet TAKE 1 TABLET BY MOUTH DAILY active Not Available Not Available No t Available prochlorp erazine maleate 10 mg tablet TAKE 1 TABLET BY MOUTH EVERY 8 HOURS FOR 2 DAYS NEEDED FOR NAUSEA OR VOMITING active Not Available Not Available No t Available peg-elect rolyte solution 420 gram oral solution TAKE BY MOUTH PER INSTRUCT IONS FROM GI. active Not Available Not Available No t Available tramadol 50 mg tablet active Medicati on ID: [id number] B rand Name: tramadol Send Method: E-Prescr ibed Sub s Allowed: subs OK Medic ationGen ericName : tramadol Not Available Not Available Not Available acetamino phen 500 mg tablet TAKE 2 TABLETS BY MOUTH THREE TIMES DAILY NEEDED FOR PAIN active Not Available Not Available No t Available bupropion HCl SR 100 mg tablet,12 hr sustained -release TAKE 1 TABLET BY MOUTH DAILY. DO NOT CRUSH OR CHEW. DOSE DECREASE D FROM 150 MG XL EVERY DAY active Not Available Not Available No t Available pantopraz ole 20 mg tablet,de layed release TAKE 2 TABLETS BY MOUTH DAILY active Not Available Not Available No t Available oxycodone -acetamin ophen 5 mg-325 mg tablet TAKE 2 TABLETS BY MOUTH EVERY 4 HOURS NEEDED FOR PAIN active Not Available Not Available No t Available hydromorp carmen 2 mg tablet TAKE 1 TABLET BY MOUTH EVERY 8 HOURS FOR 3 DAYS NEEDED FOR SEVERE PAIN active Not Available Not Available No t Available amitripty line 25 mg tablet TAKE 1 TABLET BY MOUTH DAILY AT BEDTIME active Not Available Not Available No t Available prednisol one acetate 1 % eye drops,kenji pension SHAKE LIQUID AND INSTILL 1 DROP IN RIGHT EYE FOUR TIMES DAILY FOR 4 DAYS THEN STOP active Not Available Not Available No t Available lorazepam 0.5 mg tablet active Not Available Not Available Not Available metoclopr amide 5 mg tablet TAKE 1 TABLET BY MOUTH FOUR TIMES DAILY FOR 7 DAYS NEEDED FOR NAUSEA OR VOMITING active Not Available Not Available No t Available amitripty line 10 mg tablet TAKE 1 TABLET BY MOUTH DAILY AT BEDTIME FOR 7 DAYS active Not Available Not Available No t Available meclizine 25 mg tablet active Medicati on ID: [id number] B rand Name: meclizin e Send Method: E-Prescr ibed Sub s Allowed: subs OK Medic ationGen ericName : meclizin e Not Available Not Available Not Available pantopraz ole 40 mg tablet,de layed release TAKE 1 TABLET BY MOUTH DAILY active Not Available Not Available No t Available hyoscyami ne sulfate 0.125 mg tablet TAKE 1 TABLET BY MOUTH FOUR TIMES DAILY NEEDED FOR SPASMS active Not Available Not Available No t Available promethaz ine 25 mg tablet TAKE 1 TABLET BY MOUTH EVERY 6 HOURS NEEDED FOR NAUSEA OR VOMITING active Not Available Not Available No t Available oxycodone 5 mg capsule TAKE 1 CAPSULE BY MOUTH EVERY 6 HOURS NEEDED FOR PAIN active Not Available Not Available No t Available Gas Relief Extra Strength 125 mg capsule TAKE 1 CAPSULE BY MOUTH FOUR TIMES DAILY NEEDED FOR GAS active Not Available Not Available No t Available docusate sodium 100 mg capsule TAKE ONE CAPSULE BY MOUTH TWICE DAILY WITH PLENTY WATER NEEDED FOR CONSTIPA TION active Not Available Not Available No t Available omeprazol e 20 mg capsule,d elayed release active Medicati on ID: [id number] B rand Name: omeprazo le Send Method: E-Prescr ibed Sub s Allowed: subs OK Medic ationGen ericName : omeprazo le Not Available Not Available Not Available cephalexi n 500 mg tablet TAKE 1 TABLET BY MOUTH EVERY 6 HOURS active Not Available Not Available No t Available hydroxyzi ne HCl 25 mg tablet TAKE 1 TABLET BY MOUTH FOUR TIMES DAILY NEEDED FOR ITCHING active Not Available Not Available No t Available insulin lispro (U-100) 100 unit/mL subcutane ous solution active Not Available Not Available Not Available epinephri ne 0.3 mg/0.3 mL injection , auto-inje ctor active Medicati on ID: [id number] B rand Name: epinephr ine Send Method: E-Prescr ibed Sub s Allowed: subs OK Medic ationGen ericName : epinephr ine Not Available Not Available Not Available ibuprofen 600 mg tablet TAKE 1 TABLET BY MOUTH THREE TIMES DAILY FOR 7 DAYS 07/26 completed Not Available Not Available Not Available polyethyl ashlie glycol 3350 17 gram/dose oral powder DISSOLVE 17 GRAMS IN WATER AND DRINK DAILY NEEDED FOR CONSTIPA TION active Not Available Not Available No t Available ipratropi um bromide 42 mcg (0.06 %) nasal spray USE 2 SPRAYS IN EACH NOSTRIL FOUR TIMES DAILY active Not Available Not Available No t Available lisinopri l 40 mg tablet TAKE 1 TABLET BY MOUTH DAILY active Not Available Not Available No t Available ondansetr on 4 mg disintegr ating tablet DISSOLVE 1 TABLET ON THE TONGUE EVERY 8 HOURS FOR 3 DAYS NEEDED FOR NAUSEA OR VOMITING active Not Available Not Available No t Available metformin ER 500 mg tablet,ex tended release 24 hr TAKE 2 TABLETS BY MOUTH TWICE DAILY WITH FOOD active Not Available Not Available No t Available Ketostix strips USE TWICE DAILY IF GLUCOSE IS OVER 400 OR IS CONSISTE NTLY OVER 200 active Not Available Not Available No t Available metoclopr amide 10 mg tablet TAKE 1 TABLET BY MOUTH FOUR TIMES DAILY 30 MINUTES BEFORE MEALS AND AT BEDTIME active Not Available Not Available No t Available amoxicill in 875 mg-potass ium clavulana te 125 mg tablet TAKE 1 TABLET BY MOUTH EVERY 12 HOURS FOR 10 DAYS 07/27 completed Not Available Not Available Not Available oxycodone 5 mg tablet TAKE 1 TABLET BY MOUTH EVERY 6 HOURS NEEDED FOR PAIN active Not Available Not Available No t Available insulin lispro (U-100) 100 unit/mL subcutane ous pen INJECT 11 UNITS 15 MINUTES BEFORE EACH MEAL active Not Available Not Available No t Available bupropion HCl XL 150 mg 24 hr tablet, extended release TAKE 1 TABLET BY MOUTH EVERY 24 HOURS TO TAKE WITH VENLAFAX INE active Not Available Not Available No t Available Alcohol Prep Pads USE DIRECTED FOUR TIMES DAILY WITH INJECTIO NS active Not Available Not Available No t Available topiramat e 50 mg tablet TAKE 1 TABLET BY MOUTH DAILY active Not Available Not Available No t Available Gas Relief Extra Strength 125 mg chewable tablet CHEW 1 TABLET BY MOUTH FOUR TIMES DAILY NEEDED FOR GAS active Not Available Not Available No t Available fluocinol one 0.01 % scalp oil and shower cap active Not Available Not Available Not Available cholecalc iferol (vitamin D3) 25 mcg (1,000 unit) tablet TAKE 1 TABLET BY MOUTH DAILY. active Not Available Not Available No t Available Lantus Solostar U-100 Insulin 100 unit/mL (3 mL) subcutane ous pen INJECT 55 UNITS DAILY AT BEDTIME active Not Available Not Available No t Available Linzess 145 mcg capsule TAKE 1 CAPSULE BY MOUTH DAILY active Not Available Not Available No t Available Jardiance 10 mg tablet TAKE 1 TABLET BY MOUTH DAILY IN THE MORNING 07/26 completed Not Available Not Available Not Available Jardiance 25 mg tablet TAKE 1 TABLET BY MOUTH DAILY IN THE MORNING active Not Available Not Available No t Available Trulicity 1.5 mg/0.5 mL subcutane ous pen injector 07/26 completed Medicati on ID: [id number] B rand Name: Trulicit y Send Method: E-Prescr ibed Sub s Allowed: subs OK Medic ationGen ericName : Trulicit y Not Available Not Available Not Available Trulicity 0.75 mg/0.5 mL subcutane ous pen injector INJECT 0.75MG SUBCUTAN EOUSLY ONE DAY A WEEK active Not Available Not Available No t Available Linzess 72 mcg capsule TAKE 1 CAPSULE BY MOUTH DAILY. DO NOT CRUSH OR CHEW active Not Available Not Available No t Available baclofen 5 mg tablet active Medicati on ID: [id number] B rand Name: baclofen Send Method: E-Prescr ibed Sub s Allowed: subs OK Medic ationGen ericName : baclofen Not Available Not Available Not Available Baqsimi 3 mg/actuat ion nasal spray active Not Available Not Available Not Available CeQur Simplicit y 2 unit device active Not Available Not Available Not Available CeQur Simplicit y Inside Sales Engineer active Not Available Not Available Not Available Lauren Navamark anthonyPawan U-100 Insulin 100 unit/mL subcutane ous active Not Available Not Available Not Available Trulicity 3 mg/0.5 mL subcutane ous pen injector ADMINIST ER 3 MG UNDER THE SKIN EVERY WEEK. ROTATE INJECTIO N SITES active Not Available Not Available No t Available FreeStyle Madelyn 3 [place] USE TO CHECK BLOOD GLUCOSE DIRECTED THREE TIMES DAILY active Not Available Not Available No t Available FreeStyle Madelyn 3 Plus Sensor device USE DIRECTED AND CHANGE EVERY 15 DAYS active Not Available Not Available No t Available Vitals Date Recorded Body height Body mass index (BMI) Body weight Provider Name and Address Organization Details Last Updated DateTime 07/27/2024 162.56 cm 34.3 kg/m2 91095.47 g Christopher Arora MA [facility] 07/27/2024 09:56:10 Social History None recorded. Functional Status None recorded. Mental Status None recorded. Family History Nothing Reported. Medical History Condition Response Allergies/Hayfever Y Heart Problems N Anxiety Y Tonsil Infections N Emphysema N Migraines Y Thyroid Problems N Depression Y COPD N Developmental Delay N Glaucoma N Nasal or Sinus Problems Y Anemia N Immune System Disorder N Anesthesia Complications N Heart Attack ([place]) N Other Skin Condition Y Diabetes Y Rhinitis N Bleeding Disorder N Food Allergy Y Hearing Loss N Arthritis Y Hyperlipidemia N Cancer N Stroke N Dementia N Nasal polyps N Asthma N Sleep Disorder Y High Cholesterol Y GERD/Reflux N Liver Disease N Headaches Y Fibromyalgia N Hypertension N Speech Delay N Kidney Disease N Gynecological HistoryNo gynecological history recorded. Obstetrics History GPAL:G 0 P 0 0 0 0 Past Encounters Encounter ID Performer Location Encounter Start Date Encounter Closed Date Diagnosis/Indication Diagnosis SNOMED-CT Code Diagnosis ICD10 Code Diagnosis Note [id number] EFREN ODOM MD [facility] [address] [place] [address] 07/27/2024 09:48:20 07/27/2024 11:17:17 Sensorineural hearing loss of bilateral ears 501999971 H90.3 Audiologic al evaluation results:[facility] ear:{{Norm al Normal through 2 kHz Mild M oderate Mo derately-s evere Jodee re Profoun d Normal through 1 kHz#}} {{hearing hearing. s loping to a mild slopi ng to a moderate s loping to moderately severe* sl oping to severe slo ping to profound f lat high frequency low frequency mid frequency cookie bite hayes curve}} {{with sen sorineural hearing loss with* cond uctive hearing loss with mixed hearing loss with}} {{excellen t* good fa ir poor no measurable }} word recognitio n.Left ear:{{Norm al Normal through 2 kHz Mild M oderate Mo derately-s evere Jodee re Profoun d Normal through 4 kHz#}} {{hearing hearing. s loping to a mild slopi ng to a moderate* sloping to moderately severe slo ping to severe slo ping to profound f lat high frequency low frequency mid frequency cookie bite hayes curve}} {{with sen sorineural hearing loss with* cond uctive hearing loss with mixed hearing loss with}} {{excellen t* good fa ir poor no measurable }} word recognitio n.Global asymmetric SNHL of 10dB or greater, worst in the right. Tympanomet ry:Right Ear:{{Type A* Type As Type Ad Type C Type C, shallow & rounded Ty pe B Type B with large volume Cou ld not maintain a hermetic seal}}Left Ear:{{Type A* Type As Type Ad Type C Type C, shallow & rounded Ty pe B Type B with large volume Cou ld not maintain a hermetic seal}} Acute supp urative otitis media without spontaneous rupture of ear drum 58738885 H66.003 Sudden sen sorineural hearing loss 504207675 H90.5 Dizziness and giddiness 412159575 R42 Health Concerns Section Related Observation LastModified by Organization Detai ls LastModified Time None Recorded Concern Status LastModified by Organization Details LastModified Time None Recorded Advance Directives Directive None Recorded Payers Encounter Date Sequence Insurance Name Policy Number Policy Oliveros Covered Member ID Oliveros Member ID Guarantor Name 07/27/2024 1 [facility] (MEDICAID HMO) [id number] Izzy Palacios [id number] Izzy Palacios Notes Date Note Type Note Provider Name and Address Organization Details Recorded Time 07/27/2024 text/html 48-year-old female presents for evaluation of bilateral ear infection. Patient states that the first of the year she began to have facial pain and pressure with increased nasal congestion. This quickly escalated to bilateral ear pain and hearing loss. She was seen at the ER and prescribed an antibiotic. When this did not work she was seen at urgent care and prescribed Augmentin. She is on day 7 of Augmentin and the ear pain and facial pressure and nasal congestion have nearly completely resolved. She does however continue to have muffled hearing on the right side. She has also been having dizziness and nausea. EFREN ODOM MD [address] [place] [address], [place], [address], [place] - [facility] 07/27/2024 12:53:21 OBGyn Episode No OBEpisode recorded.
--- OUTSIDE RECORDS SUMMARY | 2024-09-05 20:07 | XMS_ITS | Continuity of Care Document ---
Author Organization [facility] Address [address] [place] [address]- Care Team Providers Care Backend Tester Name Role Phone Frazier ParkCamilla hoffman NP Primary Care Physician Encounter [facility] Date(s): 06/19/24 - 08/31/24 [facility] [address] [place] [phone] Attending Physician: Not on Staff, Attending MD Encounter Type: Pre-OutPatient One Time Allergies, Adverse [...] 06/11/24 Recorded tetanus/diphtheria/pertussis, acel(Tdap) 06/28/23 Given SARS-CoV-2(COVID-19)mRNA-LNP vac([id number]) 06/11/24 Recorded SARS-CoV-2(COVID-19)mRNA-LNP vac([id number]) 07/15/23 Recorded pneumococcal 20-valent conjugate vaccine 1 [...] hepatitis B adult vaccine 7 04/17/24 Given [id number] 12y+ bivalent booster vax 05/04/22 Given SARS-CoV-2 mRNA ([id number]) vax 02/26/22 Recorded SARS-CoV-2 (COVID-19) mRNA BNT-162b2 [...] 11 03/22/08 Give n 1Result Comment: mfd: Undertone, Edictive 2Result Comment: [04/14/2017] 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 8Admin Note: vis 9Admin Note: vis given [...] 3 Refills, Maintenance, 08/09/24 11:01:00 AM EST, [facility] #[id number], 163, cm, 07/26/24 8:34:00 EST, Height, 92.2, kg, 07/19/24 21:11:00 EST, Dry Weight Start Date: 08/09/24 Status: Ordered Quantity: 90.0 Unit: tablet Repeat number: 4 Baqsimi Two Pack 3 mg nasal powder See Instructions, 3 mg Once In one nostril; dose does not need to be inhaled may repeat in 15 minutes, # 2 each, 5 Refills, Maintenance, 04/16/24 9:06:00 AM EDT, [facility] #[id number], Partial fill upon patient request if the [...] 1 Refills, Maintenance, 07/25/24 1:42:00 PM EST, [facility] #[id number], 90, TAKE 1 TABLET BY MOUTH EVERY 24 HOURS TO TAKEWITH VENLAFAXINE, 163, cm, 07/24/24 9:09:00 EST, Height, 92.2, kg, 07/19/24 21:11:00 EST, Dry Weight Start Date: 07/25/24 Status: Ordered Quantity: 90.0 Unit: tablet Repeat number: 1 Cequr Simplicity 2U 4-day ([facility]: [address]-10) Cequr Simplicity 2U 4-day ([place]: [address]-17), See Instructions, # 2 each, Refills 11, [...] Unit: each Repeat number: 12 Cequr Simplicity Stereo Map Plotter Operator ([facility] [id number]) Cequr Simplicity Stereo Map Plotter Operator ([facility] [address]-63), See Instructions, # 1 each, Refills 0, Tot. Refills 0, Maintenance, Use as directed to place Cequar simplicity patch, 08/09/24 2:30:00 PM EST, [facility] [address]-44; Please dispense 1 insterter, Supply, 163, cm, [...] 2 Refills, Maintenance, 08/21/24 8:40:00 AM EST, [facility] #[id number], Partial fillupon patient request if the prescription [...] 11 Refills, Maintenance, 08/20/24 6:49:00 PM EST, [facility] #[id number], replacing Humalog [place], 163, cm, 08/16/24 11:45:00 EST, Height, 92.2, kg, 07/19/24 21:11:00 EST, Dry Weight Start Date: 08/20/24 Status: Ordered Quantity: 30.0 Unit: mL Repeat number: 12 hydrOXYzine hydrochloride 25 mg oral tablet 1 tablet = 25 mg, By Mouth, 4 times a day, PRN for itching, # 40 tablet, 0 Refills, Acute 06/11/25 11:38:00 AM EST, 06/11/24 11:38:00 AM EST, Tablet, [facility] #[id number], Partial fill upon patient request if the [...] tablet, 1Refills, Maintenance, 12/28/23 1:40:00 PM EDT, [facility] #[id number], Partial fill upon patient request if the [...] 9:05:00 AM EDT, Route to Pharmacy Electronically, [email or web address] #[id number], Partial fill upon patient request if the [...] 5:11:00 PM EDT, 07/17/24 5:11:00 PM EST, [place], [facility] #[id number], Partial fill upon patient request if the [...] 11 Refills, Maintenance, 07/27/24 6:22:00 PM EST, [email or web address] #[id number], increased dose, 163, cm, 07/26/24 8:34:00 EST, Height, 92.2, kg, 07/19/24 21:11:00 EST, Dry Weight Start Date: 07/27/24 Status: Ordered Quantity: 30.0 Unit: mL Repeat number: 12 Linzess 72 mcg oral capsule 1 capsule = 72 mcg, By Mouth, Daily, do not crush or chew, # 30 capsule, 0 Refills, Maintenance, 04/12/24 8:53:00 AM EDT, Capsule, [facility] #[id number], Partial fill upon patient request if theprescription [...] 9:29:00 AM EDT, Route to Pharmacy Electronically, [facility] #[id number], Partialfill upon patient request if the prescription is for a schedule II opioid drug., 168, cm, 04/17/24 9:08:00 EDT, Height, 84.5, kg, 04/06/24 21:03:00 EDT, Dry Weight Start Date: 04/17/24 Status: Ordered Quantity: 90.0 Unit: tablet Repeat number: 3 lovastatin 40 mg oral tablet 1 tablet, By Mouth, Daily in PM, FOR CHOLESTEROL., # 90 tablet, 1 Refills, Maintenance, 03/01/24 9:55:00 AM EDT, [facility] #[id number], 163, cm, 03/01/24 9:14:00 EDT, Height, 82, kg, 02/12/24 20:07:00 EDT, Dry Weight Start Date: 03/01/24 Status: Ordered Quantity: 90.0 Unit: tablet Repeat number: 2 metFORMIN 500 mg oral tablet, extended release 2 tablet = 1,000 mg, By Mouth, 2 times a day, with food, # 360 tablet, 4 Refills, Maintenance, 05/15/24 9:09:00 AM EST, ER Tablet, [facility] #[id number], dose increase, replacing previous metformin prescription, 168, cm, 05/15/24 8:39:00 EST, Height, 84.5, kg, 04/06/24 21:03:00 EDT, Dry Weight Start Date: 05/15/24 Status: Ordered Quantity: 360.0 Unit: tablet Repeat number: 5 metoclopramide 10 mg oral tablet See Instructions, TAKE 1 TABLET BY MOUTH FOUR TIMES DAILY 30 MINUTES BEFORE MEALS AND AT BEDTIME, #120 tablet, 0 Refills, Maintenance, 04/10/24 9:19:00 AM EDT, [facility] #[id number], 168, cm, 04/06/24 21:03:00 EDT, Height, 84.5, kg, 04/06/24 21:03:00 EDT, Dry Weight Start Date: 04/10/24 Status: Ordered Quantity: 120.0 Unit: tablet Repeat number: 1 MiraLax oral powder for reconstitution = 17 Gm, By Mouth, Daily, PRN Constipation, dissolve in water, # 255 Gm, 1 Refills, Maintenance, 03/23/24 1:27:00 PM EDT, [facility] #[id number], Partial fill upon patient request if the [...] 9:37:00 AM EDT, Route to Pharmacy Electronically, [facility] #[id number], Partial fill upon patient request if the [...] Refills, Maintenance, 04/03/24 11:06:00 AM EDT, Tablet, [facility] #[id number], 160, cm, 03/30/24 9:26:00 EDT, Height, 88.7, [...] Refills, Soft Stop, 08/09/24 11:03:00 AM EST, [facility] #[id number], 163, cm, 07/26/24 8:34:00 EST, Height, 92.2, kg, 07/19/24 21:11:00 EST, DryWeight Start Date: 08/09/24 Stop Date: 02/05/25 Status: Ordered Quantity: 90.0 Unit: tablet Repeat number: 2 venlafaxine 150 mg oral capsule, extended release 1 capsule, By Mouth, Daily, # 90 capsule, 3 Refills, Maintenance, 08/09/24 11:01:00 AM EST, [facility] #[id number], 163, cm, 07/26/24 8:34:00 EST, Height, 92.2, kg, 07/19/24 21:11:00 EST, Dry Weight Start Date: 08/09/24 Status: Ordered Quantity: 90.0 Unit: capsule Repeat number: 4 Vitamin D3 1000 intl units oral tablet 1 tablet = 25 mcg, By Mouth, Daily, # 90 tablet, 2 Refills, Maintenance, 06/27/24 3:06:00 PM EST, Tablet, [facility] #[id number], Partial fill upon patient request if the [...] Refills, Maintenance, 05/17/24 8:56:00 AM EST, Tablet, [facility] #[id number], Partial fill upon patient request if the [...] 35.0-39.9) with comorbidity Confirmed Active Sialoadenitis, acute , saw ENT Confirmed 2022 Active Hepatic steatosis [...] Care team information Care Team Personnel Name: Yancy Laguerreah Position: [facility] Hospital Process Environmental Technician Member Role: Primary Care Nurse Name: Eva Mercado RN Position: [facility] RN Member Role: Primary Care Nurse Name: Hoa CERTIFIED MORTICIANCamilla Position: [facility] PCO Associate Professional Member Role: PCP Address: [address] [place] [address] Telecom: Name: Andrea Del Toro RN Position: [facility] RN Member Role: Primary Care Nurse Name: Eliza Shook RN Position: [facility] RN Member Role: Primary Care Nurse Name: Ashley Dixon RN Position: [facility] RN Member Role: Primary Care Nurse Care Team Related Persons Name: KRISTOPHER ESCOBAR Name: SLAVA ESCOBAR Name: FRANKLIN RUST Name: NICOLE WADSWORTH Name: KRISTOPHER JANE Insurance Providers Guarantor name: MARTY JANE Health Plan Information #: 1 Payer: [employer] Member Number: [id number] Policy Number: NA Group Number: [id number] Health Plan Information #: 2 Payer: [employer] Member Number: [id number] Policy Number: NA Group Number: [id number]
[2024-09-05] MEDS: 0.9 % Sodium Chloride 500 ML IV (20:20)
[2024-09-05] MEDS: cephALEXin 500 MG CAPSULE PO (20:32)
[2024-09-05] MEDS: Phenazopyridine HCL 200 MG TABLET PO (20:32)
[2024-09-05] MEDS: Ketorolac Tromethamine 15 MG/ML VIAL IVPUSH (20:53)
[2024-09-05] MEDS: ondansetron HCL 4 MG/2 ML VIAL IVPUSH (20:53)
[2024-09-05] MEDS: Morphine Sulfate 4 MG/ML CARTRIDGE IVPUSH (20:54)
[2024-09-05 21:32] VITALS: BP 141/84; PULSE 65; RESP 14; TEMP 37.1; O2SAT 97
== END 2024-09-05 21:33 | disposition home or self-care (01) ==
PROVIDERS: Physician Assistant; Emergency Provider Internal Medicine; PCP Nurse Practitioner Family
DX: N39.0 Urinary tract infection, site not specified (principal); Z90.710 Acquired absence of both cervix and uterus
CPT/HCPCS: 36415; 74176; 80053; 81001; 83690; 85025; 87086; 87088; 87186; 96374; 96376; 99284; J1885; J2270; J2405

== ENCOUNTER → 2024-09-05 19:50 | Outpatient (BNV) | payer OTHER, SELFPAY | PROVIDERS: Emergency Provider Internal Medicine; PCP Nurse Practitioner Family; Visit Provider Radiology Diagnostic Radiology | DX: K76.0 Fatty (change of) liver, not elsewhere classified (principal); R10.9 Unspecified abdominal pain | CPT/HCPCS: 74176 ==